=== PATIENT | female | born 1955 | race Caucasian/White ===

== ENCOUNTER → 2017-06-15 | Outpatient (REF) | payer BC ==
[2017-06-17 00:07] LABS: Lyme Disease IgG/IgM Antibodie <0.91 ISR (0.00-0.90); Lyme Disease IgM Ab Quantitati <0.80 index (0.00-0.79)
== END ==
LOC: M LAB REF 14:00
PROVIDERS: ATTEND Internal Medicine
DX: Z11.8 Encounter for screening for other infectious and parasitic diseases (principal)

== ENCOUNTER → 2017-08-20 | Outpatient (CLI) | payer BC ==
[2017-08-20 14:06] LABS: ANION GAP 6 MEQ/L (8-16); BLOOD UREA NITROGEN 17 MG/DL (7-18); CALCIUM LEVEL 9.2 MG/DL (8.8-10.2); CARBON DIOXIDE LEVEL 31 MEQ/L (21-32); CHLORIDE LEVEL 105 MEQ/L (98-107); CREATININE FOR GFR 0.85 MG/DL (0.55-1.02); GLOMERULAR FILTRATION RATE > 60.0 (>45); GLUCOSE, FASTING 99 MG/DL (80-110); POTASSIUM SERUM 4.6 MEQ/L (3.5-5.1); SODIUM LEVEL 142 MEQ/L (136-145)
== END ==
LOC: M SMT 08:17
PROVIDERS: ATTEND Urology
DX: N28.1 Cyst of kidney, acquired (principal)

== ENCOUNTER → 2017-08-26 | Outpatient (CLI) | payer BC, OTHER ==
[~2017-08-26] MED LIST: ISOVUE-370 76% 100ML VIAL (Q9967) As Ordered ONE
--- NOTE | 2017-08-26 09:43 | REP ---
CT ABDOMEN WITHOUT AND WITH IV CONTRAST: Without oral contrast. HISTORY: Kidney cyst. Comparison CT study August 25, 2016. The most remote CT study available for comparison is from September 04, 2015. CT CONTRAST DOSE: 100 mL of Isovue 370 is given intravenously. Pre- and dual-phase post-contrast enhanced acquisitions are performed. CT FINDINGS: There are numerous small simple cyst throughout both kidneys. One of these has been previously categorized as somewhat complex. This it is in the mid pole position of the left kidney. It and the other cysts are unchanged in size and appearance. The mid pole cyst measures 2.5 cm in greatest diameter today, unchanged from September 2015. There is a small calcification adjacent to its medial border on today's CT. No definite enhancement or mural thickening or nodularity is seen. The largest cyst in the right kidney is in the anterior cortex of its mid pole. This measures 1.9 cm in greatest diameter. No hydronephrosis is seen. No renal mass lesion is observed. A tiny accessory splenule is noted. There is diffuse moderate fatty infiltration of the liver. No focal liver lesion is seen. No adrenal lesion is observed. Pancreas is unremarkable. Small and large intestinal bowel loops are normal in the upper abdomen. IMPRESSION: Stable bilateral renal cysts including a 2.5 cm left mid pole cyst. Signed by Murphy Edwards MD 08/26/2017 01:17 P
== END ==
LOC: M RAD 08:09
PROVIDERS: ATTEND Urology
DX: N28.1 Cyst of kidney, acquired (principal)
CPT/HCPCS: 74170; Q9967

== ENCOUNTER → 2018-09-01 | Outpatient (CLI) | payer MEDICARE, BC | LOC: M RAD 08:16 | DX: N28.1 Cyst of kidney, acquired (principal) | CPT/HCPCS: 76775 ==

== ENCOUNTER → 2019-01-05 | Outpatient (CLI) | payer MEDICARE ==
--- NOTE | 2019-01-05 16:16 | REP ---
MRI LEFT WRIST: TECHNIQUE: Axial, sagittal and coronal imaging planes are utilized for T1 and T2 weighted scans obtained without fat saturation. There is no increased signal on T2 weighted images extending through a portion of the triangular fibrocartilage complex at the ulnar styloid insertion most consistent with a partial tear. Of that structure. Mild fluid is seen in the adjacent distal radioulnar joint. This scapholunate and lunatotriquetral ligaments appear intact. There is abnormal increase signal on T2 weighted images in the distal flexor carpi radialis tendon consistent with the complete tear. The tendon appears retracted to the level of the proximal carpal row. Other flexor and extensor tendons appear intact. Carpal tunnel region appears unremarkable. There is no ganglion cyst. There is mild scattered joint fluid throughout the intercarpal joints. There is no occult fracture. Scattered subchondral cysts are seen throughout the carpal bones, specifically the scaphoid, lunate, trapezoid, and capitate bones. IMPRESSION: Partial tear triangular fibrocartilage complex at the ulnar styloid insertion. Tiny amount of fluid in the adjacent distal radioulnar joint. Complete tear of the distal flexor lopez radialis tendon with retraction to about the level of the proximal carpal row. No occult fracture. Mild scattered intercarpal joint fluid. Electronically Signed by Alberto Holly MD 01/05/2019 05:18 P
== END ==
LOC: M RAD 13:12
PROVIDERS: ATTEND Orthopaedic Surgery Sports Medicine
DX: M25.532 Pain in left wrist (principal); M25.432 Effusion, left wrist; S66.812A Strain of other specified muscles, fascia and tendons at wrist and hand level, left hand, initial encounter; X58.XXXA Exposure to other specified factors, initial encounter; Y92.9 Unspecified place or not applicable

== ENCOUNTER → 2019-01-24 | Outpatient (CLI) | payer MEDICARE ==
[2019-01-24 17:48] LABS: BASO # 0.1 10^3/uL (0.0-0.2); BASO % 1.5 % (0.0-1.0); EOS # 0.2 10^3/uL (0.0-0.50); EOS % 3.1 % (0.0-3.0); HEMATOCRIT 41.5 % (36.0-47.0); HEMOGLOBIN 13.5 g/dl (12.0-15.5); LYMPH # 2.1 10^3/uL (1.5-4.5); LYMPH % 30.1 % (24.0-44.0); MEAN CORPUSCULAR HEMOGLOBIN 27.8 pg (27.0-33.0); MEAN CORPUSCULAR HGB CONC 32.5 g/dl (32.0-36.5); MEAN CORPUSCULAR VOLUME 85.4 fl (80.0-96.0); MONO # 0.6 10^3/uL (0.0-0.8); MONO % 8.2 % (0.0-5.0); NEUTROPHILS % 56.8 % (36.0-66.0); PLATELET COUNT, AUTOMATED 468 10^3/uL (150-450); RED BLOOD COUNT 4.86 10^6/uL (4.00-5.40); WHITE BLOOD COUNT 7.1 10^3/uL (4.0-10.0)
[2019-01-24 18:14] LABS: ERYTHROCYTE SEDIMENTATION RATE 4 mm/hr (0-30)
== END ==
LOC: M SMT 13:36
PROVIDERS: ATTEND Physician Assistant Surgical
DX: M17.11 Unilateral primary osteoarthritis, right knee (principal)

== ENCOUNTER → 2019-02-02 | Outpatient (REF) | payer MEDICARE ==
[2019-02-02 13:03] LABS: BLOOD UREA NITROGEN 19 MG/DL (7-18); GLOMERULAR FILTRATION RATE > 60.0 (>45)
== END ==
LOC: M LABDRAW1 12:30
PROVIDERS: ATTEND Physician Assistant Surgical
DX: M17.11 Unilateral primary osteoarthritis, right knee (principal)

== ENCOUNTER → 2019-02-28 | Outpatient (CLI) | payer MEDICARE | LOC: M SMT 11:05 | PROVIDERS: ATTEND Physician Assistant Surgical | DX: S83.241D Other tear of medial meniscus, current injury, right knee, subsequent encounter (principal); X58.XXXD Exposure to other specified factors, subsequent encounter ==

== ENCOUNTER → 2019-06-21 | Outpatient (CLI) | payer MEDICARE ==
[~2019-06-21] MED LIST changes: +CVS-161 PO; +D 50CAP PO; +FLAX1CAP5 PO; +GLUC1TAB58 PO; +ICAPTAB5 PO; -ISOVUE-370 76% 100ML VIAL (Q9967) As Ordered ONE; +MAGN250T7 PO; +REST0.05 OP; +[UNRECOGNIZED DRUG - CODE] PO; +[UNRECOGNIZED DRUG - OTHER] PO; +[UNRECOGNIZED DRUG - OTHER] PO
[2019-06-21 10:39] LABS: HEMATOCRIT 45.2 % (36.0-47.0); HEMOGLOBIN 14.6 g/dl (12.0-15.5); MEAN CORPUSCULAR HEMOGLOBIN 28.8 pg (27.0-33.0); MEAN CORPUSCULAR HGB CONC 32.3 g/dl (32.0-36.5); MEAN CORPUSCULAR VOLUME 89.2 fl (80.0-96.0); PLATELET COUNT, AUTOMATED 443 10^3/uL (150-450); RED BLOOD COUNT 5.07 10^6/uL (4.00-5.40); WHITE BLOOD COUNT 6.7 10^3/uL (4.0-10.0)
[2019-06-21 10:58] LABS: INR 1.01
[2019-06-21 11:00] LABS: ERYTHROCYTE SEDIMENTATION RATE 2 mm/hr (0-30)
[2019-06-21 11:06] LABS: ALT/SGPT 31 U/L (12-78); BILIRUBIN,TOTAL 0.5 MG/DL (0.2-1.0); BLOOD UREA NITROGEN 22 MG/DL (7-18); CALCIUM LEVEL 9.2 MG/DL (8.8-10.2); CARBON DIOXIDE LEVEL 29 MEQ/L (21-32); CHLORIDE LEVEL 105 MEQ/L (98-107); CREATININE FOR GFR 0.88 MG/DL (0.55-1.30); GLOMERULAR FILTRATION RATE > 60.0 (>45); GLUCOSE, FASTING 97 MG/DL (70-100); POTASSIUM SERUM 4.1 MEQ/L (3.5-5.1); SODIUM LEVEL 141 MEQ/L (136-145); TOTAL PROTEIN 7.1 GM/DL (6.4-8.2)
--- NOTE | 2019-06-21 12:32 | REP ---
REASON: Preoperative evaluation. COMPARISON EXAMINATION: 11/19/2005. FINDINGS: The superior mediastinal structures are midline. The cardiac silhouette is unremarkable in size, shape, and position. The diaphragmatic surfaces of the lungs are regular, and the costophrenic angles are clear. The pulmonary kim are clear. The imaged osseous structures are intact. IMPRESSION: There is no acute cardiopulmonary disease. No change from the prior exam. Electronically Signed by Kem Sanchez DO 06/21/2019 12:42 P
--- NOTE | 2019-06-23 09:06 | ECGEPIP ---
[facility] Test Date: 2019-06-21 Pat Name: YG REID Department: Room: - Gender: Female [employer]: RYANNE : 1955 Requested By: Krishna Diego Order Number: [id number] Reading MD: Aury Schneider Measurements Intervals [place] Rate: 77 P: 56 WV: 153 QRS: 6 QRSD: 97 T: 47 QT: 369 QTc: 419 Interpretive Statements SINUS RHYTHM POSSIBLE LEFT ATRIAL ENLARGEMENT PROBABLE INFERIOR MYOCARDIAL INFARCTION, OLD NO CHANGE COMPARED TO 07/10/15 Electronically Signed on 06-23-2019 9:06:23 EDT by Aury Schneider
== END ==
LOC: M RAD 09:43
PROVIDERS: ATTEND Orthopaedic Surgery
DX: Z01.818 Encounter for other preprocedural examination (principal); M17.11 Unilateral primary osteoarthritis, right knee

== ENCOUNTER 2019-07-17 06:55 | Inpatient (IN) | payer MEDICARE ==
--- NOTE | 2019-07-05 02:43 | CR ---
DATE OF CONSULTATION: 06/28/2019 PREOPERATIVE CONSULTATION: For Dr. Johnathon Packer for total knee arthroplasty (TKA) 07/17/[address] [facility] ([facility]). Dr. Packer: Thank you for asking me to see Ms. Ann Zaragoza in consultation. She is, as you know, a 64-year-old female, past medical history of hypertension, hyperlipidemia, hyperglycemia, who reports that she has been in her usual state of health except for the disability from her right knee. She has had Euflexxa shots with little response as well as a trial of gabapentin. 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 Patient has hypertension. She has been diet controlled. She denies any chest pain, palpitations, syncope, or presyncope. Patient has had right rotator cuff surgery July 2015 with adequate results. Patient has a history of chronic hematuria and follows urology annually. Patient has a history of hyperglycemia and denies polyuria, polyphagia, polydipsia. Patient has a history of nephrolithiasis. Denies recent flank pain or hematuria. REVIEW OF SYSTEMS: Otherwise, negative. Denying fevers or chills, chest pain or shortness of breath, nausea, vomiting, change in bowels. PAST MEDICAL HISTORY: 1. (G) 6, para (P) 5, spontaneous (AB) 1. 2. Right eye laser surgery 2001, Dr. Brown. 3. Hematuria with cystoscopy showing small stones, CT scan showing renal cyst. 4. Status post appendectomy in 1974. 5. Atypical squamous cells of undetermined significance (ASCUS) October 2004. 6. Carpal tunnel. 7. Diverticulosis per colonoscopy August 2008. 8. Gastroesophageal reflux disease (GERD) per upper gastrointestinal (GI) endoscopy 2005. 9. Hypertension. 10. Hyperlipidemia. 11. Hyperglycemia. 12. Right knee arthroscopy 08/15/2013. 13. Osteopenia. 14. Right rotator cuff surgery July 2015. 15. Atypical endophytic keratinocytic proliferation per biopsy right cheek. 16. Nephrolithiasis per CT imaging. Follows with urology. 17. Left wrist torn tendon November 2018. 18. Tubular adenomatous colonic polyp July 2018. Repeat 5 years. MEDICATIONS: - Aspercreme as needed - calcium citrate plus D daily - flaxseed oil 1300 mg daily - ICaps daily - magnesium 500 mg daily - Osteo Bi-Flex daily - Restasis as directed - vitamin C 250 mg daily - vitamin D3, 2000 international units daily - woman's multivitamin daily ALLERGIES: Patient's drug allergies are none. FAMILY HISTORY: Father had hypertension, of a stroke at 102 years old. Mother had dilated cardiomyopathy, hypertension, transient ischemic attacks (TIAs), of pulmonary edema at age of 94. Her daughter has Down syndrome. A brother has hypertension, a sister osteoporosis, another sister chronic obstructive pulmonary disease (COPD). SOCIAL HISTORY: Happily . Former smoker as a teenager. Denies alcohol use. 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 PATIENT HEALTH QUESTIONNAIRE-9 (PHQ-9): Negative for depression. PHYSICAL EXAMINATION: Overweight female in no acute distress. VITAL SIGNS: Weight 183 with a body mass index (BMI) of 33. Her oxygen saturation is 93% on exertion. Blood pressure 176/84, recheck 144/88 with a pulse of 80. HEENT EXAM: Head is normocephalic. Neck is supple. Pupils equal, reactive to light. Extraocular movements are intact. She wears eyeglasses. She has normal tympanic membranes. Tongue midline. Posterior pharynx without inflammation. NECK: Is supple. No thyromegaly, jugular venous distention (JVD), or carotid bruits. RESPIRATORY: Clear to auscultation. Resonant to percussion. BREASTS: Examination deferred. CARDIOVASCULAR: Regular rate and rhythm. No murmur, rub, or gallop. ABDOMEN: Obese, soft, nontender. No hepatosplenomegaly. EXTREMITIES: No cyanosis, clubbing, or edema but does have some osteoarthritis (OA) changes of the distal interphalangeal (DIP) joints as well as well-healed right anterior shoulder scar and right knee scar. NEUROLOGIC: Alert and oriented. Cranial nerves II-XII are intact. She has a slight decrease in her reflexes. LABORATORY DATA: Chest x-ray 06/21/2019 shows no acute pulmonary disease. EKG 06/21/2019 shows normal sinus rhythm, possible left atrial enlargement (LAE), cannot rule out inferior wall myocardial infarction (IA), but unchanged compared to EKG 07/10/2015. Rate is 77, axis 6 degrees, normal NC, QRS, QTc. 06/21/2019, normal PT, CBC, med profile, liver panel. From 02/27/2019, she had a fasting sugar of 113, total cholesterol of 201, triglycerides 108, HDL 69, LDL 110. IMPRESSION: Ms. Ann Zaragoza, 64-year-old female with cardiovascular risk factors positive for hypertension, hyperglycemia, hyperlipidemia, age, obesity, has no signs or symptoms indicative of cardiovascular ischemia and is optimized and at low risk for cardiovascular complications from the proposed surgical intervention, which can be further minimized by the following: RECOMMENDATIONS: 1. Hypertension. Diet, exercise, salt restriction. Adequate control on recheck. 2. Hyperglycemia. Diet, exercise, carbohydrate restriction. 3. Hyperlipidemia. Diet, exercise. Hold fish oil 1 week prior to surgery. 4. Renal cyst. Follows with urology. 5. Nephrolithiasis. Push fluids daily, citric products. 6. Obesity. Diet, exercise. 7. Fatty liver. Diet, exercise. Thank you very much for this consultation. Patient has been instructed to hold all vitamins and supplements morning of surgery. Please call with any questions or concerns. I will see her in a hospital followup 07/27/2019. ANGELIA
--- NOTE | 2019-07-05 17:53 | HPE ---
DATE OF ADMISSION: 07/17/2019 ATTENDING PHYSICIAN: Dr. Johnathon Packer CHIEF COMPLAINT: Right knee pain and stiffness. HISTORY: The patient is a pleasant 64-year-old female with progressively worsening right knee pain and stiffness. She has failed to improve with conservative measures. She continues to have symptoms with weightbearing activities and activities of daily living. The patient has consented for an elective right total knee arthroplasty with Dr. Packer for her continued symptoms. Medical optimization pending with Dr. Holley. CURRENT MEDICATIONS: Osteo Bi-Flex, calcium with vitamin D, flaxseed oil, vitamin C, a multivitamin, fiber supplement, and Restasis eye drops. ALLERGIES: There are no known drug allergies. CHRONIC MEDICAL CONDITIONS: None. PAST SURGICAL HISTORY: 1. Right knee arthroscopy. 2. Right shoulder rotator cuff repair. 3. Appendectomy. 4. Left wrist ganglion cyst removal. SOCIAL HISTORY: The patient is a former smoker and denies alcohol use. REVIEW OF SYSTEMS: The patient denies fevers, chills, nausea, vomiting or diarrhea. She denies chest pain, shortness of breath, lightheadedness, dizziness or headaches. She denies any abdominal pain. She denies any recent upper respiratory or urinary tract infection symptoms. The patient continues to have right knee pain with weightbearing activities and activities of daily living. PHYSICAL EXAMINATION: GENERAL: Well-nourished, well-developed female in no apparent distress. She is alert, oriented and cooperative. Mood and affect are appropriate. VITAL SIGNS: Height 5 feet, 3 inches, weight 182.8 pounds, temperature 98.5, blood pressure 120/80, heart rate 67, respirations 16. HEART: Regular rate and rhythm. LUNGS: Clear to auscultation bilaterally. ABDOMEN: Bowel sounds are present. Abdomen is soft and nontender to palpation. MUSCULOSKELETAL: Right knee exhibits no erythema, edema or ecchymosis. Skin is intact. She can extend knee to 2 degrees and flex to about 100 degrees. Right lower extremity strength is 5/5. No hip irritability elicited with range of motion testing. The patient's calf is soft, nontender to palpation with no palpable cords noted. She is neurovascularly intact distally. LABORATORY DATA: Chest x-ray: No acute cardiopulmonary process. Right knee x-ray notable for end-stage degenerative changes. EKG: Sinus rhythm with possible left atrial enlargement and probable inferior myocardial infarction, old. No change to previous tracing dated 07/10/2015. Complete blood count: ESR 2, WBCs 6.7, RBCs 5.07, hemoglobin 14.6, hematocrit 45.2, platelets 443. Prothrombin time 13, INR 1.01. Comprehensive metabolic profile: Fasting glucose 97, BUN elevated at 22, creatinine 0.88, GFR greater than 60, sodium 141, potassium 4.1, chloride 105, carbon dioxide 29, anion gap decreased at 7, calcium 9.2, AST 18, ALT 31, alkaline phosphatase 58, total bilirubin 0.5, total protein 7.1, albumin 4, albumin-globulin ratio 1.29. IMPRESSION: Right knee degenerative osteoarthritis with x-rays notable for end-stage degenerative changes. PLAN: The patient has consented for an elective right total knee arthroplasty with Dr. Packer for her continued symptoms. Medical optimization pending with Dr. Holley. [facility]
[~2019-07-17] VITALS: Ht 160 cm; Wt 82.9 kg
[2019-07-17] VITALS (8 sets, daily range): BP systolic 144–173; BP diastolic 68–87
[~2019-07-17 06:55] MED LIST changes: +ACETAMINOPHEN 500 MG TAB PO ONE; +BUPIVACAINE HCL 0.25% 10 ML VIAL As Ordered ONE; +BUPIVACAINE LIPOSOME/PF 1.3% 20ML VIAL (13.3MG/ML)(EXPAREL)(C9290 PER1MG) As Ordered ONE; +EPINEPHrine INJ 1 MG/ML 1ML AMP As Ordered ONE; +LIDOCAINE 1% MDV 20ML VIAL SQ PRN; +LR 1,000 ML IV ONE; +TRANEXAMIC ACID 100 MG/ML 10ML VIAL As Ordered ONE; +ceFAZolin 1GM INJ (J0690 PER 500MG) As Ordered ONE
[2019-07-17] MEDS ORDERED: fentaNYL 100 MCG/2 ML INJECTION (J3010) As Ordered ONE ×2 (08:20→09:35)
[2019-07-17] MEDS ORDERED: MIDAZOLAM INJ 2 MG/2 ML VIAL (J2250) As Ordered ONE ×2 (08:20→09:35)
[2019-07-17] MEDS ORDERED: MIDAZOLAM INJ 2 MG/2 ML VIAL (J2250) IV ONE (09:15)
[2019-07-17] MEDS ORDERED: fentaNYL 100 MCG/2 ML INJECTION (J3010) IV ONE (09:15)
[2019-07-17] MEDS ORDERED: PROPOFOL 200 MG/20 ML VIAL As Ordered ONE (09:35)
[2019-07-17] MEDS ORDERED: PHENYLephrine HCL 500 MCG/5 ML (100MCG/ML) SYRINGE (J2370) As Ordered ONE (09:48)
[2019-07-17] MEDS ORDERED: fentaNYL 100 MCG/2 ML INJECTION (J3010) IV PRN (11:15)
[2019-07-17] MEDS ORDERED: PERCOCET 5MG/325MG TAB PO PRN (11:15)
[2019-07-17] MEDS ORDERED: ONDANSETRON 4MG/2ML VIAL (J2405) IV PRN (11:15)
[2019-07-17] MEDS ORDERED: LR 1,000 ML IV SCH ×2 (11:15→14:45)
--- NOTE | 2019-07-17 11:44 | REP ---
Portable right knee, two views, post operative study: There is a total knee arthroplasty with the components tightly applied and in satisfactory positions alignment. There are skin jfefrey. There is intra-articular air as a postoperative change. I suspect there is a bone cyst in the fibular head. Electronically Signed by Alberto Zavala MD 07/17/2019 11:36 A
[2019-07-17] MEDS ORDERED: HYDROMORPHONE HCL 0.5 MG/ 0.5 ML SYRINGE (J1170 PER 1) IV PRN ×2 (12:16)
[2019-07-17] MEDS ORDERED: ACETAMINOPHEN TAB 650MG DOSE (2X325MG) PO PRN (12:16)
[2019-07-17] MEDS ORDERED: FLEET ENEMA PR PRN (12:16)
[2019-07-17] MEDS ORDERED: dexameTHASONE 10 MG/1 ML VIAL PRES.FREE (J1100) ONE (13:49)
[2019-07-17] MEDS ORDERED: ROPIvacaine 0.5% 30 ML INJECTION (J2795 PER 1MG) ONE (13:49)
[2019-07-17] MEDS: PERCOCET 5MG/325MG TAB PO PRN (18:29)
--- NOTE | 2019-07-17 23:00 | CR.PDOC ---
General Date of Consultation: Jul 17, 2019 Referring Provider: Krishna Packer Consultation REASON FOR CONSULTATION/CHIEF COMPLAINT: Medical management status post right t otal knee arthroplasty. HISTORY OF PRESENT ILLNESS: This is a 64-year-old female with osteoarthritis. She's had increasing disability and pain to her right knee. Conservative management has not been successful. She has subsequently undergone right total knee arthroplasty with spinal block.. ALLERGIES: Please see below. HOME MEDICATIONS: Please see below. PAST MEDICAL HISTORY: The patient denies any significant past medical history aside from dry eye. PAST SURGICAL HISTORY: Surgical history includes appendectomy, right rotator cuff repair, left ganglionic cyst excision FAMILY HISTORY: There is maternal and paternal history of stroke; family members have tended to be long-lived--father at the age of 102. 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 Tobacco use:None ETOH: None Illicit drug use: None IV drug use: None REVIEW OF SYSTEMS: 10 system review is otherwise negative except as stated in the brief presentation. PHYSICAL EXAMINATION: VITAL SIGNS: Please see below. GENERAL APPEARANCE: The patient is calm and in no distress. HEENT: Neck is supple with no adenopathy or thyromegaly. Oral mucosa is moist. RESPIRATORY: Clear to auscultation with no rhonchi, rales or wheezes or cough. CARDIOVASCULAR: Regular rate and rhythm, no appreciable murmur. ABDOMEN: Soft, nontender, nondistended, positive bowel tones. EXTREMITIES: Right lower extremity is wrapped in compression dressing, distally. Toes are warm and mobile. NEUROLOGICAL: The patient is able to feel me touching her toes but not her buttock and perianal area; she has had spinal anesthetic. LABORATORY DATA: Please see below. ASSESSMENT/PLAN: This is a 64-year-old female with degenerative joint disease who is just undergone right total knee arthroplasty. She is doing well. She does not have remarkable pain at the moment. She will mobilize per the orthopedic service. Plans are for the patient to be discharged to home rather than correction, likely within the next 24-48 hours. She is receiving Xarelto for DVT prophylaxis. Dilaudid and oxycodone are available for pain management. Vital Signs/I&O Vital Signs Date Time Temp Pulse Resp B/P (MAP) Pulse Ox O2 Delivery O2 Flow Rate FiO2 07/17/19 18:59 18 07/17/19 18:30 99.1 100 160/73 (102) 93 07/17/19 08:40 2 Allergies Coded Allergies: No Known Allergies (Unverified , 07/17/19) Home Medications Scheduled B2/Vits A,C,E/Lut/Zeaxanth/Min (Icaps Tablet) 1 Each Tablet.er, 1 TAB PO DAILY, (Reported) Calcium Citrate/Vitamin D3 (Calcium Citrate - Vit D Caplet) 1 Each Tablet, 1 TAB PO BID, (Reported) Cholecalciferol (Vitamin D3) (Vitamin D3) 5,000 Unit Capsule, 5,000 UNIT PO Q2D, (Reported) Cyclosporine (Restasis) 0.05% Droperette, 2 DROP OP BID for 30 Days, #60 (Repo rted) Flaxseed Oil (Flaxseed Oil) 1,000 Mg Capsule, 1 CAP PO DAILY, (Reported) Glucosamine/D3/Boswellia Prema (Osteo Bi-Flex Tablet) 1 Each Tablet, 1 EACH PO DAILY, (Reported) Magnesium Oxide (Magnesium) 250 Mg Tablet, 250 MG PO DAILY for 30 Days, #30 (Reported) [vitafusion fiberwell] , 1 GUM PO DAILY, (Reported) DILSHAD PANIAGUA MD Jul 17, 2019 23:00
[2019-07-18 02:00] VITALS: BP 147/66
[2019-07-18] MEDS: PERCOCET 5MG/325MG TAB PO PRN ×3 (02:15→11:52)
[2019-07-18 06:00] VITALS: BP 129/77
[2019-07-18 06:36] LABS: HEMATOCRIT 37.9 % (36.0-47.0); HEMOGLOBIN 12.3 g/dl (12.0-15.5); MEAN CORPUSCULAR HEMOGLOBIN 28.3 pg (27.0-33.0); MEAN CORPUSCULAR HGB CONC 32.5 g/dl (32.0-36.5); MEAN CORPUSCULAR VOLUME 87.1 fl (80.0-96.0); PLATELET COUNT, AUTOMATED 414 10^3/uL (150-450); RED BLOOD COUNT 4.35 10^6/uL (4.00-5.40); WHITE BLOOD COUNT 13.3 10^3/uL (4.0-10.0)
[2019-07-18 06:53] LABS: BLOOD UREA NITROGEN 20 MG/DL (7-18); CALCIUM LEVEL 8.7 MG/DL (8.8-10.2); CARBON DIOXIDE LEVEL 27 MEQ/L (21-32); CHLORIDE LEVEL 108 MEQ/L (98-107); CREATININE FOR GFR 0.91 MG/DL (0.55-1.30); GLOMERULAR FILTRATION RATE > 60.0 (>45); GLUCOSE, FASTING 122 MG/DL (70-100); SODIUM LEVEL 141 MEQ/L (136-145)
[2019-07-18] MEDS ORDERED: XARE10TA PO (07:37)
[2019-07-18] MEDS ORDERED: PERC5TAB12 PO (07:37)
[2019-07-18] MEDS ORDERED: MOM 30ML SUSPENSION UDC PO SCH (09:00)
[2019-07-18] MEDS ORDERED: MIRALAX *UNIT DOSE* 17GM PACKET PO SCH (09:00)
--- NOTE | 2019-07-18 09:28 | RO ---
DATE OF PROCEDURE: 07/17/2019 PREOPERATIVE DIAGNOSIS: Right knee degenerative arthritis. POSTOPERATIVE DIAGNOSIS: Right knee degenerative arthritis. PROCEDURE: Right total knee arthroplasty using a size 6 ATTUNE cruciate retaining femoral component with a size 4 tibial tray and 5 mm rotating platform polyethylene insert and a 35 mm polyethylene button. All the components were cemented. The prosthesis was made by [employer]. It was an ATTUNE knee. SURGEON: Krishna Packer MD DATA ACQUISITION TECHNICIAN: Jessica Colin PA-C ANESTHESIA: Spinal with right femoral nerve block. COMPLICATIONS: None. ESTIMATED BLOOD LOSS: 20 mL. SPECIMENS: Joint surface. PROCEDURE: Antibiotics were given intravenously preoperatively. A successful right femoral nerve block and then a spinal anesthetic was induced. The tourniquet was placed on the right upper thigh and not inflated. The right lower extremity was carefully prepped and draped in the usual sterile fashion. The leg was elevated and after appropriate time out, the tourniquet was inflated. A longitudinal incision was made for a medial parapatellar approach to the knee. Bovie cautery was used to coagulate the crossing vessels. Subperiosteal dissection around the proximal, medial and lateral tibial plateaus was performed. The patella was everted and the knee was flexed. The anterior cruciate ligament (ACL) was debrided. Drill placed down the center of femoral canal, followed by the intramedullary richa, the distal femoral cutting jig set at 5 degree valgus for a right knee at 9 mm resection level. A block was pinned into position and distal femoral cut performed. AP sizing jig measured for a size 6. 3 degrees of external rotation were dialed in and then the pins were placed followed by the four-in-one block and then the anterior, posterior and chamfer cuts were performed taking great care to protect the surrounding soft tissues. The notchplasty jig was then applied and the notchplasty performed. We then exposed the proximal tibia and used the extramedullary alignment jig to estimate being parallel to the mechanical axis of the tibia. We referenced off the medial tibial condyle at 4 mm resection level and the block was pinned in position and secondary check of extramedullary richa confirmed we appeared to be parallel to the mechanical axis. The proximal tibial osteotomy was thus performed and then we placed a lamina line construction superintendent medially and performed a completion lateral meniscectomy and debridement of the posterolateral osteophytes. I then placed the lamina line construction superintendent laterally and performed a completion medial meniscectomy and debridement of the posteromedial osteophytes. There were two fairly large marion sized loose bodies in the posterolateral compartment of the knee, which were removed. We then placed the spacer block, the 6 mm was a bit snug in flexion and in extension. The 5 mm fit the best, still retaining good stability to varus valgus stress testing. We then exposed the proximal tibia, sized for a size #4 tibial tray which was pinned into position followed by the reamer and broach, and the trial polyethylene and trial femoral component. We brought the knee out into extension and then everted the patella, brought the knee out into extension, and then everted the patella, performed patellar osteotomy and sized for a 35 button. The lug holes were drilled, the trial was placed. Patellofemoral tracking was anatomic. At this point, we felt we had the appropriate size componentry. We removed all the trial components after drilling the lug holes for the femur, then copiously pulsatile lavage irrigated out the knee joint. Miss Jessica Colin mixed the cement on the back table as I prepared the bony surfaces for cementing with a copious amount of pulsatile lavage irrigant solution. Exparel was placed in the subperiosteal tissues around the distal femur and the proximal tibia just prior to mixing the cement. Then after a copious amount of irrigation was applied and all the bony surfaces were thoroughly dried we cemented the tibial tray removing excess cement, placed the polyethylene, cemented the femoral component and removed excess cement, brought the knee out into extension, cemented the patellar button and removed excess cement and held it with a patellar clamp with the knee in full extension while we awaited for the cement to harden. A copious amount of irrigant solution was then instilled once again throughout the knee joint as we were waiting for the cement to harden followed by tranexamic acid. We then began closing the apex of the arthrotomy with two #1 PDS sutures. Then the medial parapatellar area was closed with a #1 PDS sutures and a double armed #1 STRATAFIX was used to close the capsule. Then we let the tourniquet down. I irrigated again and closed the deep subdermal tissues with interrupted #2-0 PDS sutures. Skin was closed with jeffrey, covered by Optifoam and a dry sterile bulky dressing. Ms. Jessica Colin was critical to the success of this difficult operation by helping with appropriate soft tissue retraction, helped to manipulate the knee as needed, helped to mix the cement, helped to close the wound, and helped to prepare the patient amongst many other tasks to allow me to perform the operation smoothly, efficiently and safely.
[2019-07-18] MEDS ORDERED: RIVAROXABAN 10 MG TAB (XARELTO) PO SCH (18:00)
--- NOTE | 2019-07-18 19:29 | IPNPDOC ---
Date Seen The patient was seen on 07/18/19. Progress Note SUBJECTIVE: Patient reported feeling well without any complaints. States that RLE still no significant discomfort yet. For discharge today per primary. OBJECTIVE PHYSICAL EXAMINATION: VITAL SIGNS: Please see below. General: No acute distress, Alert Eyes: Normal sclera, EOMI, SUE HENT: Atraumatic, neck supple, moist mucous membranes Cardiovascular: Normal rate, normal rhythm. Pulmonary: Clear to auscultation b/l, no wheezing GI: Soft, nontender, nondistended Skin: Warm and dry. R knee with overlying bandage clean and dry. No significant tenderness or erythema. Neuro: CN grossly intact. No focal deficits. Strengths equal b/l. Psych: oriented x 3 LABORATORY DATA, IMAGING STUDIES, MICROBIOLOGY: Please see below. DVT prophylaxis ordered?: YES ASSESSMENT AND PLAN: 1. R. KNEE OA - s/p R. TKA - Pain control. - PT/OT. - Plan to d/c today to f/u ortho as outpatient. 2. HTN - BP controlled. - Resume home meds. 3. HLD - resume home med. DISPOSITION: Home today. VS, I&O, 24H, Fishbone Vital Signs/I&O Vital Signs Date Time Temp Pulse Resp B/P (MAP) Pulse Ox O2 Delivery O2 Flow Rate FiO2 07/18/19 12:22 16 07/18/19 06:00 98.3 73 129/77 (94) 95 07/17/19 08:40 2 I&O- Last 24 Hours up to 6 AM 07/18/19 06:00 Intake Total 2450 ml Output Total 970 ml Balance 1480 ml Laboratory Data 24H LABS Laboratory Tests 2 07/18/19 06:08: Nucleated Red Blood Cells % (auto) 0.0 07/18/19 06:09: Anion Gap 6L, Glomerular Filtration Rate > 60.0, Blood Urea Nitrogen 20H, Creatinine 0.91, Sodium Level 141, Potassium Level 4.0, Chloride Level 108H, Carbon Dioxide Level 27, Calcium Level 8.7L CBC/BMP Laboratory Tests 07/18/19 06:08 Red Blood Count 4.35, Mean Corpuscular Volume 87.1, Mean Corpuscular Hemoglobin 28.3, Mean Corpuscular Hemoglobin Concent 32.5, Red Cell Distribution Width 13.9 07/18/19 06:09 Calcium Level 8.7 L KASSY ACOSTA MD Jul 18, 2019 19:29
== END 2019-07-18 14:15 | disposition home or self-care (01) | DRG 470 ==
LOC: M OR 06:55 → M MS5PR 13:20
PROVIDERS: ADMIT Orthopaedic Surgery; ATTEND Orthopaedic Surgery
PROC: 0SRC0J9 Replacement of Right Knee Joint with Synthetic Substitute, Cemented, Open Approach (ICD-10-PCS; principal; 2019-07-17 09:15)
DX: M17.11 Unilateral primary osteoarthritis, right knee (principal); I10 Essential (primary) hypertension; E78.5 Hyperlipidemia, unspecified; K57.30 Diverticulosis of large intestine without perforation or abscess without bleeding; K21.9 Gastro-esophageal reflux disease without esophagitis; Z79.899 Other long term (current) drug therapy; N28.1 Cyst of kidney, acquired; E66.9 Obesity, unspecified; K76.0 Fatty (change of) liver, not elsewhere classified; N20.0 Calculus of kidney

== ENCOUNTER → 2019-09-18 | Outpatient (CLI) | payer MEDICARE ==
[~2019-09-18] MED LIST changes: -ACETAMINOPHEN 500 MG TAB PO ONE; -BUPIVACAINE HCL 0.25% 10 ML VIAL As Ordered ONE; -BUPIVACAINE LIPOSOME/PF 1.3% 20ML VIAL (13.3MG/ML)(EXPAREL)(C9290 PER1MG) As Ordered ONE; -EPINEPHrine INJ 1 MG/ML 1ML AMP As Ordered ONE; -LIDOCAINE 1% MDV 20ML VIAL SQ PRN; -LR 1,000 ML IV ONE; +PERC5TAB12 PO; -TRANEXAMIC ACID 100 MG/ML 10ML VIAL As Ordered ONE; +XARE10TA PO; -ceFAZolin 1GM INJ (J0690 PER 500MG) As Ordered ONE
--- NOTE | 2019-09-18 12:21 | REP ---
RENAL ULTRASOUND: Real-time sonographic evaluation of the kidneys performed and compared to a prior study of 11/01/[address] 08/26/2017. Right kidney measures 10.0 x 5.4 x 4.6 cm and left kidney 9.7 x 6.0 x 5.8 cm. There is no hydronephrosis bilaterally. There are once again multiple bilateral renal cysts present which appear similar to prior studies, some of which contain low level echoes. A cyst in the upper pole of the right kidney measures 13 x 10 x 12 mm, in the mid right kidney 7 mm and in the lower pole 1.7 x 1.3 x 1.1 cm. A cyst in the upper left kidney measures 2.3 x 2.1 x 2.7 cm and two cysts in the lower pole in the left kidney measure 1.2 cm and 1.0 x 0.8 x 1.4 cm. Echogenic focus in the mid right kidney measures 6 mm and another in the mid left kidney measures 10 mm, likely representing calculi. Urinary bladder appears grossly unremarkable with bilateral ureteral jets seen with Doppler color evaluation. IMPRESSION: Bilateral renal cysts appear similar to prior examinations. Possible calculus is seen in each kidney. Electronically Signed by Alberto Holly MD 09/19/2019 08:40 P
== END ==
LOC: M RAD 09:57
PROVIDERS: ATTEND Urology
DX: Q61.00 Congenital renal cyst, unspecified (principal)

== ENCOUNTER → 2019-09-22 | Outpatient (REF) | payer BC ==
[2019-09-22 12:21] LABS: BLOOD UREA NITROGEN 17 MG/DL (7-18); CALCIUM LEVEL 9.7 MG/DL (8.8-10.2); CARBON DIOXIDE LEVEL 31 MEQ/L (21-32); CHLORIDE LEVEL 107 MEQ/L (98-107); CREATININE FOR GFR 0.75 MG/DL (0.55-1.30); GLOMERULAR FILTRATION RATE > 60.0 (>45); GLUCOSE, FASTING 97 MG/DL (70-100); POTASSIUM SERUM 4.1 MEQ/L (3.5-5.1); SODIUM LEVEL 142 MEQ/L (136-145)
== END ==
LOC: M LABSMT 09:47
PROVIDERS: ATTEND Nurse Practitioner Family
DX: Q61.00 Congenital renal cyst, unspecified (principal)

== ENCOUNTER → 2019-09-26 | Outpatient (CLI) | payer BC ==
[~2019-09-26] MED LIST changes: +ISOVUE-370 76% 100ML VIAL (Q9967) As Ordered ONE
--- NOTE | 2019-09-26 18:17 | REP ---
CT ABDOMEN AND PELVIS WITH AND WITHOUT IV CONTRAST: CT abdomen and pelvis is performed prior to and following the intravenous administration of 100 mL of Isovue-370. Sagittal and coronal reconstruction images are performed. COMPARISON: Prior CT 08/26/2017. Visualized lung bases demonstrate no evidence of acute infiltrate. The liver demonstrates no mass. The gallbladder appears unremarkable. There is no biliary dilatation. The spleen is normal in size with no intrinsic abnormality. The adrenal glands are normal. Pancreas appears normal with no pancreatic ductal dilatation. There are once again multiple bilateral renal cysts present. Five or six cysts are seen in the right kidney, the largest measuring about 1.8 cm in diameter in the mid aspect. None of these enhance. There are approximately 15 cysts of the left kidney. The largest is in the upper pole and measures approximately 2.4 cm. However, there does appear to be an enhancing solid mass in the adjacent posterior upper pole of the left kidney measuring 1.5 cm in diameter. This is suspicious for carcinoma. A punctate cortical calcification is seen in the lower pole of the right kidney. Another is seen in the upper pole of the left kidney. No renal calculi are seen. There is no hydroureteronephrosis bilaterally and no evidence of bladder calculus. Mild atherosclerotic calcification is seen of the abdominal aorta without aneurysm. There is no adenopathy. There is no free air or free fluid. There is no bowel wall thickening. There is sigmoid diverticulosis without acute diverticulitis. No pelvic mass is seen. There are degenerative changes of the spine. IMPRESSION: Multiple bilateral renal cysts again noted. There is a solid renal nodule posteriorly in the upper pole of the left kidney, which is not seen by ultrasound measuring 1.5 cm in diameter. This is suspicious for renal cell carcinoma. I see no adenopathy. Electronically Signed by Alberto Holly MD 09/27/2019 09:58 A
== END ==
LOC: M RAD 16:24
PROVIDERS: ATTEND Nurse Practitioner Family
DX: N28.1 Cyst of kidney, acquired (principal); N20.0 Calculus of kidney
CPT/HCPCS: 74178; Q9967

== ENCOUNTER → 2020-08-22 | Outpatient (CLI) | payer MEDICARE ==
[~2020-08-22] MED LIST changes: -ISOVUE-370 76% 100ML VIAL (Q9967) As Ordered ONE
--- NOTE | 2020-08-22 12:45 | REP ---
INDICATION: CMPLEX RENAL CYST COMPARISON: CT dated 09/26/2019 TECHNIQUE: Real time prince scale ultrasound examination using curved array transducer. FINDINGS: The kidneys demonstrate increased parenchymal echotexture with increased central sinus fat consistent with chronic medical renal disease and no evidence for hydronephrosis. The right kidney measures 9.6 x 5.3 x 4.5 cm and includes multiple simple and complex cysts including septated cysts with layering milk of calcium measuring up to 1.7 cm maximal diameter. The left kidney measures 10.6 x 5.6 x 6.1 cm and includes a multiple simple and complex cysts including septated cysts with layering milk of calcium measuring up to 3.0 cm. There is a 1.7 x 1.6 x 2.1 cm upper pole solid mass consistent with the findings on prior CT dated 2018 and concerning for renal cell carcinoma unless proven otherwise. IMPRESSION: 1. Chronic medical renal disease with bilateral simple and complex cysts. No hydronephrosis. 2. Left upper pole renal mass. <Electronically signed by Rob Ren > 08/22/20 [id number]
== END ==
LOC: M RAD 11:29
PROVIDERS: ATTEND Urology
DX: Q61.00 Congenital renal cyst, unspecified (principal); N18.9 Chronic kidney disease, unspecified; N28.89 Other specified disorders of kidney and ureter

== ENCOUNTER → 2020-10-03 | Outpatient (CLI) | payer MEDICARE ==
[2020-10-03 09:08] LABS: BLOOD UREA NITROGEN 16 MG/DL (7-18); CALCIUM LEVEL 9.5 MG/DL (8.8-10.2); CARBON DIOXIDE LEVEL 30 MEQ/L (21-32); CHLORIDE LEVEL 106 MEQ/L (98-107); CREATININE FOR GFR 0.96 MG/DL (0.55-1.30); GLOMERULAR FILTRATION RATE > 60.0 (>45); GLUCOSE, FASTING 133 MG/DL (70-100); POTASSIUM SERUM 3.9 MEQ/L (3.5-5.1); SODIUM LEVEL 140 MEQ/L (136-145)
== END ==
LOC: M LAB 07:33
PROVIDERS: ATTEND Urology
DX: N28.89 Other specified disorders of kidney and ureter (principal)

== ENCOUNTER → 2021-09-23 | Outpatient (CLI) | payer MEDICARE ==
--- NOTE | 2021-09-23 18:04 | DEXAMM ---
INDICATION: SCREENING FOR OSTEOPENIA. COMPARISON: 04/17/2019, 10/30/2005. TECHNIQUE: Bone density was measured using dual-energy x-ray absorptiometry (DEXA). FINDINGS: AP SPINE L1-L4 BMD 1.225 g/cm2 Young Adult T-Score 0.2 Age Matched Z-Score 1.9. LT FEMUR, TOTAL BMD 0.948 g/cm2 Young Adult T-Score -0.5 Age Matched Z-Score 0.9. LT NECK BMD 0.773 g/cm2 Young Adult T-Score -1.9 Age Matched Z-Score -0.3. RT FEMUR, TOTAL BMD 0.880 g/cm2 Young Adult T-Score -1.0 Age Matched Z-Score 0.4. RT NECK BMD 0.781 g/cm2 Young Adult T-Score -1.8 Age Matched Z-Score -0.2. IMPRESSION: There is normal bone density of the spine. There is low bone density of the left hip. There is low bone density of the right hip. The density of the spine has decreased 6.5% since the initial exam on 10/30/2005. The density of the spine increased 3.1% since most recent exam on 04/17/2019. The density of the left hip has decreased 1.1% since initial exam on 10/30/2005. The density of the left hip has increased 1.4% since most recent exam on 04/17/2019. The density of the right hip has decreased 11.0% since the initial exam on 10/30/2005. The density of the right hip has decreased 0.1% since the most recent exam on 04/17/2019. FOLLOW-UP: Recommendation for the next bone density exam: 2 years. <Electronically signed by Alberto Holly > 09/23/21 1800
== END ==
LOC: M WHC 09:09
PROVIDERS: ATTEND Internal Medicine
DX: M85.851 Other specified disorders of bone density and structure, right thigh (principal); M85.852 Other specified disorders of bone density and structure, left thigh

== ENCOUNTER → 2021-10-21 | Outpatient (CLI) | payer MEDICARE ==
[2021-10-21 16:38] LABS: CALCIUM LEVEL 9.8 MG/DL (8.8-10.2); CREATININE FOR GFR 1.1 MG/DL (0.55-1.30); GLOMERULAR FILTRATION RATE 52.6 (>45); POTASSIUM SERUM 3.9 MEQ/L (3.5-5.1)
== END ==
LOC: M WUC 14:25
PROVIDERS: ATTEND Nurse Practitioner Women's Health
DX: N28.89 Other specified disorders of kidney and ureter (principal)

== ENCOUNTER → 2021-10-23 | Outpatient (CLI) | payer MEDICARE ==
--- NOTE | 2021-10-23 12:33 | REP ---
INDICATION: B/L DIAG LEFT BREAST LUMP; LEFT BREAST LUMP. COMPARISON: 09/18/2020 as well as other prior exams. TECHNIQUE: MLO and CC views bilateral breasts with tomosynthesis, additional cleavage views left breast. Focused left breast ultrasound at the site of a palpable lump, with skin discoloration, far medial and posteriorly of the left breast close to the chest wall. FINDINGS: There is mild scattered fibroglandular tissue again seen bilaterally, unchanged. No new mass or architectural distortion is seen mammographically. The reported palpable abnormality is not adequately included the obtained mammographic images due to its close proximity to the chest wall. No clustered microcalcifications are seen bilaterally. Focused left breast ultrasound performed at the site of the palpable lump. The patient reports this lump has decreased in size since appearing in September 2021. At this location, there is a superficial hypoechoic area measuring 1.4 x 0.6 x 1.0 cm. This involves the dermis and most likely represents a complex sebaceous cyst. The Volpara volumetric breast density pattern is A. IMPRESSION: BIRADS/ACR category 3, probably benign. No mammographic abnormality is visualized. Sonographically, at the site of the palpable lump close to the left chest wall, at the medial margin of the left breast, is a superficial complex cyst felt to represent a sebaceous cyst. Recommend clinical correlation and six-month follow-up ultrasound. This patient's Tyrer-Cuzick lifetime breast cancer risk assessment score is 5.2%. This mammogram was interpreted with the aid of an FDA-approved computer-aided detection system. The patient states she had a clinical breast exam in December 2020. The patient letter being requested is M3. RECOMMENDATION: Recommend follow-up left breast ultrasound in 6 months. <Electronically signed by Alberto Holly > 10/23/21 [id number]
== END ==
LOC: M WHC 08:42
PROVIDERS: ATTEND Internal Medicine
DX: N63.20 Unspecified lump in the left breast, unspecified quadrant (principal); N60.02 Solitary cyst of left breast
CPT/HCPCS: 76642; 77066; G0279

== ENCOUNTER → 2021-10-23 | Outpatient (CLI) | payer MEDICARE ==
[~2021-10-23] MED LIST changes: +ISOVUE-370 76% 100ML VIAL As Ordered ONE
--- NOTE | 2021-10-26 20:50 | REP ---
INDICATION: RENAL MASS LEFT SIDE. COMPARISON: 10/10/2020, 09/26/2019 TECHNIQUE: Axial precontrast, arterial phase, venous phase, and delayed phased contrast-enhanced images of the abdomen using 100 cc Isovue 370 intravenous contrast material. Coronal and sagittal reformations obtained. This CT examination was performed using the following dose reduction techniques: Automated exposure control, adjustment of mA and/or kv according to the patient's size, and the use of iterative reconstruction technique. FINDINGS: The kidneys demonstrate bilateral simple and complex cysts including a complex proteinaceous cyst along the posterolateral cortex lower pole left kidney which measures roughly 1.2 cm diameter. The left kidney also includes a 2 cm lesion along the posterolateral aspect of the upper pole which remains stable in size compared with 2019, but demonstrates increased enhancement from the noncontrast through contrast-enhanced images concerning for neoplastic lesion (series 601; images 35-40). Liver demonstrates hepatosteatosis without focal hepatic lesion. Spleen, pancreas, gallbladder, and bilateral adrenal glands are normal. Visualized portions of the enteric system are relatively normal. No ascites. No free air. No intraperitoneal or retroperitoneal adenopathy. Abdominal aorta appears normal. Evidence for congenital duplicated IVC. Musculoskeletal structures demonstrate age-related degenerative changes without acute osseous abnormality. Lung bases are clear. IMPRESSION: 1. Left kidney demonstrates an upper pole lesion that remains stable in size through 2019, but demonstrates increased enhancement from the noncontrast through arterial and portal venous phase sequences concerning for neoplasm. No perinephric stranding or adjacent adenopathy. Consider MRI for further investigation if necessary. 2. Remainder of the renal lesions are stable and most compatible with simple and proteinaceous complex cysts. <Electronically signed by Rob Ren > 10/26/212046
== END ==
LOC: M RAD 16:25
PROVIDERS: ATTEND Nurse Practitioner Women's Health
DX: N28.89 Other specified disorders of kidney and ureter (principal)
CPT/HCPCS: 74170; Q9967

== ENCOUNTER → 2021-12-02 | Outpatient (CLI) | payer MEDICARE ==
[~2021-12-02] MED LIST changes: -ISOVUE-370 76% 100ML VIAL As Ordered ONE
== END ==
LOC: M WUC 08:22
PROVIDERS: ATTEND Nurse Practitioner Women's Health
DX: Z01.818 Encounter for other preprocedural examination (principal); N28.89 Other specified disorders of kidney and ureter

== ENCOUNTER → 2021-12-15 | Outpatient (REF) | payer MEDICARE ==
[~2021-12-15] MED LIST changes: +TRET0.02 EX
[2021-12-15 11:45] LABS: APPEARANCE, URINE CLEAR (CLEAR); BACTERIA, URINE AUTO NEGATIVE (NEGATIVE); BILIRUBIN, URINE AUTO NEGATIVE (NEGATIVE); BLOOD, URINE BLOOD NEGATIVE (NEGATIVE); GLUCOSE, URINE (UA) AUTO NEGATIVE (NEGATIVE); KETONE, URINE AUTO NEGATIVE (NEGATIVE); LEUKOCYTE ESTERASE, URINE AUTO NEGATIVE (NEGATIVE); MUCUS, URINE SMALL (NEGATIVE); NITRITE, URINE AUTO NEGATIVE (NEGATIVE); PROTEIN, URINE AUTO NEGATIVE (NEGATIVE); RBC, URINE AUTO 1 /HPF (0-3); SPECIFIC GRAVITY URINE AUTO 1.006 (1.002-1.035); SQUAMOUS EPITHELIAL CELL UR AU 1 /HPF (0-6); UROBILINOGEN, URINE AUTO 0.2 mg/dL (0.0-2.0); WBC, URINE AUTO 0 /HPF (0-3)
[2021-12-15 12:02] LABS: COLOR, URINE YELLOW (YELLOW)
== END ==
LOC: M SMT 11:19
PROVIDERS: ATTEND Nurse Practitioner Women's Health
DX: N28.89 Other specified disorders of kidney and ureter (principal); Z01.818 Encounter for other preprocedural examination

== ENCOUNTER → 2021-12-16 | Outpatient (CLI) | payer MEDICARE ==
[2021-12-16 20:14] LABS: APPEARANCE, URINE CLEAR (CLEAR); BACTERIA, URINE AUTO NEGATIVE (NEGATIVE); BILIRUBIN, URINE AUTO NEGATIVE (NEGATIVE); BLOOD, URINE BLOOD NEGATIVE (NEGATIVE); COLOR, URINE STRAW (YELLOW); GLUCOSE, URINE (UA) AUTO NEGATIVE (NEGATIVE); KETONE, URINE AUTO NEGATIVE (NEGATIVE); LEUKOCYTE ESTERASE, URINE AUTO NEGATIVE (NEGATIVE); MUCUS, URINE SMALL (NEGATIVE); NITRITE, URINE AUTO NEGATIVE (NEGATIVE); PROTEIN, URINE AUTO NEGATIVE (NEGATIVE); RBC, URINE AUTO 1 /HPF (0-3); SPECIFIC GRAVITY URINE AUTO 1.009 (1.002-1.035); SQUAMOUS EPITHELIAL CELL UR AU 0 /HPF (0-6); UROBILINOGEN, URINE AUTO 0.2 mg/dL (0.0-2.0); WBC, URINE AUTO 0 /HPF (0-3)
== END ==
LOC: M WUC 15:28
PROVIDERS: ATTEND Urology
DX: N28.89 Other specified disorders of kidney and ureter (principal); Z01.818 Encounter for other preprocedural examination

== ENCOUNTER → 2021-12-19 | Outpatient (CLI) | payer MEDICARE | LOC: M LABSMTC 10:45 | PROVIDERS: ATTEND Anesthesiology | DX: Z01.818 Encounter for other preprocedural examination (principal); Z11.52 Encounter for screening for COVID-19 ==

== ENCOUNTER 2021-12-24 06:06 | Inpatient (IN) | payer MEDICARE ==
[~2021-12-24] VITALS: Ht 160 cm; Wt 83.4 kg
[2021-12-24] VITALS (8 sets, daily range): BP systolic 145–161; BP diastolic 71–86
[~2021-12-24 06:06] MED LIST changes: +LR 1,000 ML IV ONE; +ceFAZolin SOD 2 GM in IV 1 EA IV ONE
[2021-12-24] MEDS ORDERED: LIDOCAINE 1% SDV 30ML VIAL As Ordered ONE (07:09)
[2021-12-24] MEDS ORDERED: BUPIVACAINE HCL 0.25% 30ML VIAL As Ordered ONE (07:09)
[2021-12-24] MEDS ORDERED: ONDANSETRON 4MG/2ML VIAL IV PRN ×2 (07:25→11:55)
[2021-12-24] MEDS ORDERED: PERCOCET 5MG/325MG TAB PO PRN (07:25)
[2021-12-24] MEDS ORDERED: ACETAMINOPHEN TAB 650MG DOSE (2X325MG) PO PRN (07:25)
[2021-12-24] MEDS ORDERED: ONDANSETRON 4MG/2ML VIAL As Ordered ONE (07:26)
[2021-12-24] MEDS ORDERED: propofoL 200 MG/20 ML VIAL As Ordered ONE (07:26)
[2021-12-24] MEDS ORDERED: ROCURONIUM BROMIDE 50 MG/5 ML VIAL As Ordered ONE (07:26)
[2021-12-24] MEDS ORDERED: dexameTHASONE 4 MG/ML 1ML VIAL (J1100 PER 1MG) As Ordered ONE (07:26)
[2021-12-24] MEDS ORDERED: LIDOCAINE 2% 100MG/5ML SDV (FOR ANES.) As Ordered ONE (07:26)
[2021-12-24] MEDS ORDERED: HYDROmorphone HCL 2MG/ML 1ML VIAL As Ordered ONE (07:26)
[2021-12-24] MEDS ORDERED: fentaNYL 250 MCG/5 ML INJECTION As Ordered ONE (07:26)
[2021-12-24] MEDS ORDERED: SUGAMMADEX SODIUM 500 MG/5 ML VIAL (BRIDION) As Ordered ONE (07:26)
[2021-12-24] MEDS ORDERED: METOCLOPRAMIDE INJ 10MG/2ML VIAL (J2765 PER 1) As Ordered ONE (07:26)
[2021-12-24] MEDS ORDERED: MIDAZOLAM INJ 2MG/2ML VIAL (J2250 PER 1MG) As Ordered ONE (07:26)
[2021-12-24] MEDS ORDERED: PHENYLephrine 500MCG 5ML (100MCG/ML) SYRINGE As Ordered ONE (07:56)
[2021-12-24] MEDS ORDERED: ePHEDrine SULFATE 25 MG/5 ML(5MG/ML) SYRINGE As Ordered ONE (08:10)
[2021-12-24] MEDS ORDERED: MANNITOL 25% 12.5 GM/50 ML VIAL (J2150) As Ordered ONE (08:22)
[2021-12-24] MEDS ORDERED: DESFLURANE 240 ML INHALANT As Ordered ONE (10:46)
[2021-12-24] MEDS ORDERED: LR 1,000 ML IV SCH (11:55)
[2021-12-24] MEDS: oxyCODONE 5MG TAB PO PRN ×2 (12:03→12:26)
[2021-12-24] MEDS: fentaNYL 100 MCG/2 ML INJECTION IV PRN ×4 (12:03→12:33)
[2021-12-24 12:44] LABS: HEMATOCRIT 42.6 % (36.0-47.0); HEMOGLOBIN 13.6 g/dl (12.0-15.5); MEAN CORPUSCULAR HEMOGLOBIN 27.5 pg (27.0-33.0); MEAN CORPUSCULAR HGB CONC 31.9 g/dl (32.0-36.5); MEAN CORPUSCULAR VOLUME 86.2 fl (80.0-96.0); PLATELET COUNT, AUTOMATED 476 10^3/uL (150-450); RED BLOOD COUNT 4.94 10^6/uL (4.00-5.40); WHITE BLOOD COUNT 10.4 10^3/uL (4.0-10.0)
[2021-12-24] MEDS: DOCUSATE SODIUM 100MG CAPSULE PO SCH ×2 (13:00→21:04)
[2021-12-24] MEDS: NS 1,000 ML IV SCH ×2 (13:00→21:04)
[2021-12-24 13:06] LABS: CALCIUM LEVEL 8.8 MG/DL (8.8-10.2); CREATININE FOR GFR 1.12 MG/DL (0.55-1.30); GLOMERULAR FILTRATION RATE 51.5 (>45); POTASSIUM SERUM 3.3 MEQ/L (3.5-5.1)
[2021-12-24] MEDS: ceFAZolin SOD 1 GM in D5W MINI-BAG PLUS 50 ML IV SCH ×2 (16:41→23:51)
[2021-12-25 02:00] VITALS: BP 140/70
[2021-12-25] MEDS: PERCOCET 5MG/325MG TAB PO PRN ×3 (02:07→12:55)
[2021-12-25 06:00] VITALS: BP 159/77
[2021-12-25 06:20] LABS: HEMATOCRIT 37.4 % (36.0-47.0); MEAN CORPUSCULAR HEMOGLOBIN 27.9 pg (27.0-33.0); MEAN CORPUSCULAR HGB CONC 32.1 g/dl (32.0-36.5); PLATELET COUNT, AUTOMATED 407 10^3/uL (150-450); WHITE BLOOD COUNT 10.9 10^3/uL (4.0-10.0)
[2021-12-25 06:50] LABS: BLOOD UREA NITROGEN 16 MG/DL (7-18); CALCIUM LEVEL 8.1 MG/DL (8.8-10.2); CARBON DIOXIDE LEVEL 31 MEQ/L (21-32); CHLORIDE LEVEL 108 MEQ/L (98-107); CREATININE FOR GFR 0.91 MG/DL (0.55-1.30); GLOMERULAR FILTRATION RATE > 60.0 (>45); GLUCOSE, FASTING 96 MG/DL (70-100); POTASSIUM SERUM 3.8 MEQ/L (3.5-5.1); SODIUM LEVEL 141 MEQ/L (136-145)
[2021-12-25 08:00] VITALS: BP 158/78
[2021-12-25] MEDS: DOCUSATE SODIUM 100MG CAPSULE PO SCH (09:05)
[2021-12-25 12:55] VITALS: BP 154/70
[2021-12-25] MEDS ORDERED: PERCOCET PO (15:05)
[2021-12-25] MEDS ORDERED: COLA100C5 PO (15:05)
== END 2021-12-25 16:35 | disposition home or self-care (01) | DRG 661 ==
LOC: M OR 06:06 → M MSPAV 13:20
PROVIDERS: ADMIT Urology; ATTEND Urology
PROC: 8E0W4CZ Robotic Assisted Procedure of Trunk Region, Percutaneous Endoscopic Approach (ICD-10-PCS; 2021-12-24)
PROC: 0TB04ZZ Excision of Right Kidney, Percutaneous Endoscopic Approach (ICD-10-PCS; principal; 2021-12-24 07:30)
DX: N28.1 Cyst of kidney, acquired (principal)

== ENCOUNTER → 2022-01-09 | Outpatient (CLI) | payer MEDICARE ==
[~2022-01-09] MED LIST changes: +COLA100C5 PO; -LR 1,000 ML IV ONE; +PERCOCET PO; -ceFAZolin SOD 2 GM in IV 1 EA IV ONE
[2022-01-09 13:07] LABS: HEMATOCRIT 44.3 % (36.0-47.0); HEMOGLOBIN 13.9 g/dl (12.0-15.5); MEAN CORPUSCULAR HEMOGLOBIN 27.4 pg (27.0-33.0); MEAN CORPUSCULAR HGB CONC 31.4 g/dl (32.0-36.5); MEAN CORPUSCULAR VOLUME 87.2 fl (80.0-96.0); PLATELET COUNT, AUTOMATED 684 10^3/uL (150-450); RED BLOOD COUNT 5.08 10^6/uL (4.00-5.40); WHITE BLOOD COUNT 9.4 10^3/uL (4.0-10.0)
[2022-01-09 13:35] LABS: CALCIUM LEVEL 9.5 MG/DL (8.8-10.2); CREATININE FOR GFR 0.99 MG/DL (0.55-1.30); GLOMERULAR FILTRATION RATE 59.4 (>45); POTASSIUM SERUM 4.7 MEQ/L (3.5-5.1)
== END ==
LOC: M WUC 09:48
PROVIDERS: ATTEND Urology
DX: D36.9 Benign neoplasm, unspecified site (principal); N28.1 Cyst of kidney, acquired

== ENCOUNTER 2022-10-08 17:56 | Emergency (ER) | payer MEDICARE ==
[~2022-10-08] VITALS: Ht 160 cm; Wt 82.7 kg
[2022-10-08] MEDS ORDERED: ALBUTEROL 90 MCG/ACT 8GM HFA INHALER INH ONE (22:10)
[2022-10-08] MEDS ORDERED: methylPREDNISolone 125MG 2ML VIAL IV ONE (22:10)
[2022-10-08] MEDS ORDERED: ISOVUE-370 76% 100ML VIAL As Ordered ONE (22:11)
[2022-10-08] MEDS ORDERED: BENZONATATE 100MG CAPSULE PO ONE (22:15)
[2022-10-08 22:19] LABS: BASO # 0.1 10^3/uL (0.0-0.2); EOS # 0.3 10^3/uL (0.0-0.5); EOS % 3.5 % (0.0-3.0); HEMATOCRIT 43.1 % (36.0-47.0); HEMOGLOBIN 13.8 g/dl (12.0-15.5); LYMPH # 2.4 10^3/uL (1.5-5.0); LYMPH % 31.8 % (24.0-44.0); MEAN CORPUSCULAR HEMOGLOBIN 27.7 pg (27.0-33.0); MEAN CORPUSCULAR VOLUME 86.5 fl (80.0-96.0); MONO # 0.5 10^3/uL (0.0-0.8); MONO % 7.1 % (2.0-8.0); NEUTROPHILS # 4.3 10^3/uL (1.5-8.5); NEUTROPHILS % 56.2 % (36.0-66.0); PLATELET COUNT, AUTOMATED 490 10^3/uL (150-450); RED BLOOD COUNT 4.98 10^6/uL (4.00-5.40); WHITE BLOOD COUNT 7.7 10^3/uL (4.0-10.0)
[2022-10-08] MEDS ORDERED: VENTAER INH (23:32)
[2022-10-08] MEDS ORDERED: MEDR4PAK PO (23:32)
[2022-10-08 23:56] VITALS: BP 156/82
[2022-10-09] MEDS ORDERED: BENZ200C70 PO (00:16)
== END 2022-10-09 00:24 | disposition home or self-care (01) ==
LOC: M ED 17:56
DX: J45.901 Unspecified asthma with (acute) exacerbation (principal); B97.4 Respiratory syncytial virus as the cause of diseases classified elsewhere; R04.2 Hemoptysis; I51.7 Cardiomegaly; I10 Essential (primary) hypertension; Z79.51 Long term (current) use of inhaled steroids; Z79.899 Other long term (current) drug therapy
CPT/HCPCS: 71046; 71275; 80047; 85025; 87486; 87581; 87633; 87798; 94640; 96374; 99283; J2930; Q9967

== ENCOUNTER → 2022-11-16 | Outpatient (CLI) | payer MEDICARE ==
[~2022-11-16] MED LIST changes: +BENZ200C70 PO; +MEDR4PAK PO; +VENTAER INH
== END ==
LOC: M WHC 07:57
PROVIDERS: ATTEND Internal Medicine
DX: Z12.31 Encounter for screening mammogram for malignant neoplasm of breast (principal)

== ENCOUNTER → 2023-03-09 | Outpatient (CLI) | payer MEDICARE ==
[2023-03-09 17:47] LABS: BASO # 0.2 10^3/uL (0.0-0.2); BASO % 1.8 % (0.0-1.0); EOS # 0.4 10^3/uL (0.0-0.5); EOS % 4.5 % (0.0-3.0); HEMATOCRIT 44.9 % (36.0-47.0); LYMPH # 2.1 10^3/uL (1.5-5.0); LYMPH % 25.4 % (24.0-44.0); MEAN CORPUSCULAR HEMOGLOBIN 28.1 pg (27.0-33.0); MEAN CORPUSCULAR HGB CONC 31.2 g/dl (32.0-36.5); MONO # 0.6 10^3/uL (0.0-0.8); MONO % 7.3 % (2.0-8.0); NEUTROPHILS % 60.5 % (36.0-66.0); PLATELET COUNT, AUTOMATED 577 10^3/uL (150-450); RED BLOOD COUNT 4.99 10^6/uL (4.00-5.40); WHITE BLOOD COUNT 8.2 10^3/uL (4.0-10.0)
[2023-03-10 14:06] LABS: JAK2 MUTATIONS FOR PATH SENDOU See Pathology Report
== END ==
LOC: M PLALAB 16:15
PROVIDERS: ATTEND Internal Medicine Hematology
DX: D47.3 Essential (hemorrhagic) thrombocythemia (principal); D75.839 Thrombocytosis, unspecified

== ENCOUNTER → 2023-04-21 | Outpatient (CLI) | payer MEDICARE ==
[2023-04-21 10:48] LABS: BASO # 0.2 10^3/uL (0.0-0.2); BASO % 2.3 % (0.0-1.0); EOS # 0.3 10^3/uL (0.0-0.5); EOS % 4.5 % (0.0-3.0); HEMATOCRIT 45.5 % (36.0-47.0); HEMOGLOBIN 14.3 g/dl (12.0-15.5); LYMPH # 1.9 10^3/uL (1.5-5.0); LYMPH % 25.3 % (24.0-44.0); MEAN CORPUSCULAR HEMOGLOBIN 28.4 pg (27.0-33.0); MEAN CORPUSCULAR HGB CONC 31.4 g/dl (32.0-36.5); MEAN CORPUSCULAR VOLUME 90.5 fl (80.0-96.0); MONO # 0.4 10^3/uL (0.0-0.8); MONO % 5.3 % (2.0-8.0); NEUTROPHILS # 4.5 10^3/uL (1.5-8.5); NEUTROPHILS % 62.1 % (36.0-66.0); PLATELET COUNT, AUTOMATED 516 10^3/uL (150-450); RED BLOOD COUNT 5.03 10^6/uL (4.00-5.40); WHITE BLOOD COUNT 7.3 10^3/uL (4.0-10.0)
[2023-04-21 11:27] LABS: ALBUMIN 4.1 G/DL (3.2-5.2); ALKALINE PHOSPHATASE 57 U/L (46-116); ALT/SGPT 25 U/L (7.0-40); AST/SGOT < 8 U/L (<34); BILIRUBIN,TOTAL 0.5 MG/DL (0.3-1.2); BLOOD UREA NITROGEN 24 MG/DL (9-23); CALCIUM LEVEL 8.9 MG/DL (8.3-10.6); CARBON DIOXIDE LEVEL 28 MMOL/L (20-31); CHLORIDE LEVEL 104 MMOL/L (98-107); CREATININE FOR GFR 0.87 MG/DL (0.55-1.30); GLOMERULAR FILTRATION RATE > 60.0 (>39); GLUCOSE, FASTING 108 MG/DL (74-106); POTASSIUM SERUM 4.1 MMOL/L (3.5-5.1); SODIUM LEVEL 141 MMOL/L (136-145); TOTAL PROTEIN 6.9 G/DL (5.7-8.2)
== END ==
LOC: M PLALAB 07:32
PROVIDERS: ATTEND Internal Medicine Hematology
DX: D47.3 Essential (hemorrhagic) thrombocythemia (principal)

== ENCOUNTER → 2023-05-05 | Outpatient (CLI) | payer MEDICARE ==
[2023-05-05 10:37] LABS: BASO # 0.2 10^3/uL (0.0-0.2); BASO % 2.7 % (0.0-1.0); EOS # 0.3 10^3/uL (0.0-0.5); EOS % 4.2 % (0.0-3.0); HEMATOCRIT 45.6 % (36.0-47.0); HEMOGLOBIN 14.4 g/dl (12.0-15.5); LYMPH % 31.4 % (24.0-44.0); MEAN CORPUSCULAR HEMOGLOBIN 28.8 pg (27.0-33.0); MEAN CORPUSCULAR HGB CONC 31.6 g/dl (32.0-36.5); MEAN CORPUSCULAR VOLUME 91.2 fl (80.0-96.0); MONO # 0.4 10^3/uL (0.0-0.8); MONO % 6.9 % (2.0-8.0); NEUTROPHILS # 3.4 10^3/uL (1.5-8.5); NEUTROPHILS % 54.6 % (36.0-66.0); PLATELET COUNT, AUTOMATED 427 10^3/uL (150-450); WHITE BLOOD COUNT 6.3 10^3/uL (4.0-10.0)
== END ==
LOC: M PLALAB 08:54
PROVIDERS: ATTEND Internal Medicine Hematology
DX: D47.3 Essential (hemorrhagic) thrombocythemia (principal)

== ENCOUNTER → 2023-05-18 | Outpatient (CLI) | payer MEDICARE ==
[2023-05-18 13:59] LABS: ALKALINE PHOSPHATASE 57 U/L (46-116); ALT/SGPT 24 U/L (7.0-40); AST/SGOT 16 U/L (<34); BILIRUBIN,TOTAL 0.6 MG/DL (0.3-1.2); BLOOD UREA NITROGEN 20 MG/DL (9-23); CALCIUM LEVEL 9.1 MG/DL (8.3-10.6); CARBON DIOXIDE LEVEL 30 MMOL/L (20-31); CHLORIDE LEVEL 105 MMOL/L (98-107); CREATININE FOR GFR 0.82 MG/DL (0.55-1.30); GLOMERULAR FILTRATION RATE > 60.0 (>39); GLUCOSE, FASTING 103 MG/DL (74-106); POTASSIUM SERUM 3.9 MMOL/L (3.5-5.1); SODIUM LEVEL 140 MMOL/L (136-145); TOTAL PROTEIN 7.1 G/DL (5.7-8.2)
[2023-05-18 14:00] LABS: BASO # 0.1 10^3/uL (0.0-0.2); BASO % 2.3 % (0.0-1.0); EOS # 0.2 10^3/uL (0.0-0.5); EOS % 3.4 % (0.0-3.0); HEMOGLOBIN 14.2 g/dl (12.0-15.5); LYMPH # 1.7 10^3/uL (1.5-5.0); LYMPH % 27.9 % (24.0-44.0); MEAN CORPUSCULAR HEMOGLOBIN 29.1 pg (27.0-33.0); MEAN CORPUSCULAR HGB CONC 31.6 g/dl (32.0-36.5); MEAN CORPUSCULAR VOLUME 92.2 fl (80.0-96.0); MONO # 0.4 10^3/uL (0.0-0.8); MONO % 6.7 % (2.0-8.0); NEUTROPHILS # 3.5 10^3/uL (1.5-8.5); NEUTROPHILS % 59.4 % (36.0-66.0); PLATELET COUNT, AUTOMATED 351 10^3/uL (150-450); RED BLOOD COUNT 4.88 10^6/uL (4.00-5.40)
[2023-05-18 14:01] LABS: FREE T4 1.08 NG/DL (0.89-1.76)
[2023-05-18 14:02] LABS: THYROID STIMULATING HORMONE 1.145 uIU/ML (0.55-4.78)
== END ==
LOC: M PLALAB 10:11
PROVIDERS: ATTEND Internal Medicine Hematology
DX: R53.82 Chronic fatigue, unspecified (principal); D47.3 Essential (hemorrhagic) thrombocythemia

== ENCOUNTER → 2023-05-28 | Outpatient (CLI) | payer MEDICARE ==
[2023-05-28 10:29] LABS: BASO # 0.2 10^3/uL (0.0-0.2); EOS # 0.2 10^3/uL (0.0-0.5); EOS % 3.4 % (0.0-3.0); HEMATOCRIT 43.6 % (36.0-47.0); HEMOGLOBIN 13.8 g/dl (12.0-15.5); LYMPH # 1.7 10^3/uL (1.5-5.0); MEAN CORPUSCULAR HEMOGLOBIN 29.5 pg (27.0-33.0); MEAN CORPUSCULAR HGB CONC 31.7 g/dl (32.0-36.5); MEAN CORPUSCULAR VOLUME 93.2 fl (80.0-96.0); MONO # 0.4 10^3/uL (0.0-0.8); MONO % 7.2 % (2.0-8.0); NEUTROPHILS # 2.9 10^3/uL (1.5-8.5); NEUTROPHILS % 54.2 % (36.0-66.0); PLATELET COUNT, AUTOMATED 329 10^3/uL (150-450); RED BLOOD COUNT 4.68 10^6/uL (4.00-5.40); WHITE BLOOD COUNT 5.3 10^3/uL (4.0-10.0)
[2023-05-28 10:53] LABS: ALBUMIN 4.1 G/DL (3.2-5.2); ALKALINE PHOSPHATASE 58 U/L (46-116); ALT/SGPT 26 U/L (7.0-40); AST/SGOT 16 U/L (<34); BILIRUBIN,TOTAL 0.4 MG/DL (0.3-1.2); BLOOD UREA NITROGEN 20 MG/DL (9-23); CALCIUM LEVEL 9.1 MG/DL (8.3-10.6); CARBON DIOXIDE LEVEL 30 MMOL/L (20-31); CHLORIDE LEVEL 105 MMOL/L (98-107); CREATININE FOR GFR 0.86 MG/DL (0.55-1.30); GLOMERULAR FILTRATION RATE > 60.0 (>39); GLUCOSE, FASTING 104 MG/DL (74-106); POTASSIUM SERUM 4.2 MMOL/L (3.5-5.1); SODIUM LEVEL 143 MMOL/L (136-145)
[2023-05-28 10:55] LABS: FREE T4 1.03 NG/DL (0.89-1.76)
[2023-05-28 10:56] LABS: THYROID STIMULATING HORMONE 1.727 uIU/ML (0.55-4.78)
== END ==
LOC: M PLALAB 08:20
PROVIDERS: ATTEND Internal Medicine Hematology
DX: D47.3 Essential (hemorrhagic) thrombocythemia (principal); E07.9 Disorder of thyroid, unspecified

== ENCOUNTER → 2023-06-01 | Outpatient (CLI) | payer MEDICARE ==
[2023-06-01 10:47] LABS: BASO # 0.1 10^3/uL (0.0-0.2); BASO % 2.2 % (0.0-1.0); EOS # 0.2 10^3/uL (0.0-0.5); EOS % 3.7 % (0.0-3.0); HEMATOCRIT 41.5 % (36.0-47.0); HEMOGLOBIN 13.4 g/dl (12.0-15.5); LYMPH # 1.7 10^3/uL (1.5-5.0); LYMPH % 31.7 % (24.0-44.0); MEAN CORPUSCULAR HEMOGLOBIN 30.2 pg (27.0-33.0); MEAN CORPUSCULAR HGB CONC 32.3 g/dl (32.0-36.5); MEAN CORPUSCULAR VOLUME 93.7 fl (80.0-96.0); MONO # 0.4 10^3/uL (0.0-0.8); MONO % 7.5 % (2.0-8.0); NEUTROPHILS % 54.9 % (36.0-66.0); PLATELET COUNT, AUTOMATED 310 10^3/uL (150-450); RED BLOOD COUNT 4.43 10^6/uL (4.00-5.40); WHITE BLOOD COUNT 5.5 10^3/uL (4.0-10.0)
== END ==
LOC: M PLALAB 08:14
PROVIDERS: ATTEND Internal Medicine Hematology
DX: D47.3 Essential (hemorrhagic) thrombocythemia (principal)

== ENCOUNTER → 2023-06-15 | Outpatient (CLI) | payer MEDICARE ==
[2023-06-15 13:48] LABS: BASO # 0.1 10^3/uL (0.0-0.2); BASO % 2.2 % (0.0-1.0); EOS # 0.2 10^3/uL (0.0-0.5); EOS % 2.6 % (0.0-3.0); HEMATOCRIT 41.8 % (36.0-47.0); HEMOGLOBIN 13.3 g/dl (12.0-15.5); LYMPH # 1.8 10^3/uL (1.5-5.0); LYMPH % 31.1 % (24.0-44.0); MEAN CORPUSCULAR HEMOGLOBIN 30.4 pg (27.0-33.0); MEAN CORPUSCULAR HGB CONC 31.8 g/dl (32.0-36.5); MEAN CORPUSCULAR VOLUME 95.7 fl (80.0-96.0); MONO # 0.4 10^3/uL (0.0-0.8); MONO % 6.1 % (2.0-8.0); NEUTROPHILS # 3.4 10^3/uL (1.5-8.5); NEUTROPHILS % 57.7 % (36.0-66.0); PLATELET COUNT, AUTOMATED 310 10^3/uL (150-450); RED BLOOD COUNT 4.37 10^6/uL (4.00-5.40); WHITE BLOOD COUNT 5.9 10^3/uL (4.0-10.0)
== END ==
LOC: M PLALAB 10:09
PROVIDERS: ATTEND Internal Medicine Hematology
DX: D47.3 Essential (hemorrhagic) thrombocythemia (principal)

== ENCOUNTER → 2023-06-28 | Outpatient (CLI) | payer MEDICARE ==
[2023-06-28 14:12] LABS: BASO # 0.1 10^3/uL (0.0-0.2); EOS # 0.2 10^3/uL (0.0-0.5); EOS % 3.9 % (0.0-3.0); HEMATOCRIT 42.9 % (36.0-47.0); HEMOGLOBIN 13.7 g/dl (12.0-15.5); LYMPH # 1.8 10^3/uL (1.5-5.0); LYMPH % 30.8 % (24.0-44.0); MEAN CORPUSCULAR HEMOGLOBIN 31.3 pg (27.0-33.0); MEAN CORPUSCULAR HGB CONC 31.9 g/dl (32.0-36.5); MEAN CORPUSCULAR VOLUME 97.9 fl (80.0-96.0); MONO # 0.4 10^3/uL (0.0-0.8); MONO % 7.4 % (2.0-8.0); NEUTROPHILS # 3.3 10^3/uL (1.5-8.5); NEUTROPHILS % 55.6 % (36.0-66.0); PLATELET COUNT, AUTOMATED 325 10^3/uL (150-450); RED BLOOD COUNT 4.38 10^6/uL (4.00-5.40); WHITE BLOOD COUNT 5.9 10^3/uL (4.0-10.0)
== END ==
LOC: M PLALAB 09:02
PROVIDERS: ATTEND Internal Medicine Hematology
DX: D47.3 Essential (hemorrhagic) thrombocythemia (principal)

== ENCOUNTER → 2023-06-29 | Outpatient (CLI) | payer MEDICARE ==
[2023-06-29 13:38] LABS: ALBUMIN 3.9 G/DL (3.2-5.2); ALKALINE PHOSPHATASE 54 U/L (46-116); ALT/SGPT 26 U/L (7.0-40); AST/SGOT 18 U/L (<34); BILIRUBIN,TOTAL 0.4 MG/DL (0.3-1.2); BLOOD UREA NITROGEN 20 MG/DL (9-23); CALCIUM LEVEL 9.1 MG/DL (8.3-10.6); CARBON DIOXIDE LEVEL 29 MMOL/L (20-31); CHLORIDE LEVEL 106 MMOL/L (98-107); CREATININE FOR GFR 0.85 MG/DL (0.55-1.30); GLOMERULAR FILTRATION RATE > 60.0 (>39); GLUCOSE, FASTING 113 MG/DL (74-106); POTASSIUM SERUM 4.2 MMOL/L (3.5-5.1); SODIUM LEVEL 142 MMOL/L (136-145); TOTAL PROTEIN 6.8 G/DL (5.7-8.2)
[2023-06-29 13:39] LABS: THYROID STIMULATING HORMONE 1.528 uIU/ML (0.55-4.78)
== END ==
LOC: M PLALAB 08:54
PROVIDERS: ATTEND Internal Medicine Hematology
DX: D47.3 Essential (hemorrhagic) thrombocythemia (principal); Z79.899 Other long term (current) drug therapy

== ENCOUNTER 2023-08-18 08:33 | Emergency (ER) | payer MEDICARE ==
[~2023-08-18] VITALS: Ht 160 cm; Wt 84.1 kg
[2023-08-18] MEDS ORDERED: NS 500 ML IV ONE (08:55)
[2023-08-18 09:09] LABS: VENOUS BASE EXCESS -0.1 (-2.0-2.0); VENOUS HCO3 25.5 MMOL/L (23.0-27.0); VENOUS O2 SATURATION 74.6 % (60.0-80.0); VENOUS PARTIAL PRESSURE CO2 45.4 mmHg (38.0-50.0); VENOUS PARTIAL PRESSURE O2 39.7 mmHg (30.0-50.0); VENOUS PH 7.368 UNITS (7.330-7.430); VENOUS STANDARD HCO3 23.9 MMOL/L; VENOUS TOTAL CO2 26.9 MMOL/L (24.0-28.0)
[2023-08-18 09:14] LABS: BASO # 0.1 10^3/uL (0.0-0.2); BASO % 1.9 % (0.0-1.0); EOS # 0.2 10^3/uL (0.0-0.5); EOS % 3.3 % (0.0-3.0); HEMATOCRIT 39.1 % (36.0-47.0); HEMOGLOBIN 12.8 g/dl (12.0-15.5); LYMPH # 1.2 10^3/uL (1.5-5.0); LYMPH % 25.5 % (24.0-44.0); MEAN CORPUSCULAR HEMOGLOBIN 33.2 pg (27.0-33.0); MEAN CORPUSCULAR HGB CONC 32.7 g/dl (32.0-36.5); MEAN CORPUSCULAR VOLUME 101.3 fl (80.0-96.0); MONO # 0.3 10^3/uL (0.0-0.8); MONO % 5.4 % (2.0-8.0); NEUTROPHILS % 63.5 % (36.0-66.0); PLATELET COUNT, AUTOMATED 274 10^3/uL (150-450); RED BLOOD COUNT 3.86 10^6/uL (4.00-5.40); WHITE BLOOD COUNT 4.8 10^3/uL (4.0-10.0)
[2023-08-18 09:34] LABS: OSMOLALITY SERUM 294 MOSM/KG (280-301)
[2023-08-18 09:39] LABS: ALBUMIN 3.6 G/DL (3.2-5.2); ALKALINE PHOSPHATASE 51 U/L (46-116); ALT/SGPT 29 U/L (7.0-40); AST/SGOT 29 U/L (<34); BILIRUBIN,DIRECT 0.1 MG/DL (<0.4); BILIRUBIN,TOTAL 0.4 MG/DL (0.3-1.2); BLOOD UREA NITROGEN 14 MG/DL (9-23); CALCIUM LEVEL 8.4 MG/DL (8.3-10.6); CARBON DIOXIDE LEVEL 28 MMOL/L (20-31); CHLORIDE LEVEL 105 MMOL/L (98-107); GLOMERULAR FILTRATION RATE > 60.0 (>39); GLUCOSE, FASTING 137 MG/DL (74-106); SODIUM LEVEL 140 MMOL/L (136-145); TOTAL PROTEIN 6.6 G/DL (5.7-8.2)
[2023-08-18 09:41] LABS: THYROID STIMULATING HORMONE 0.945 uIU/ML (0.55-4.78)
[2023-08-18] MEDS ORDERED: AMOX875T2 PO (13:15)
[2023-08-18 14:15] VITALS: BP 173/84; TEMP 98.2; O2SAT 97
== END 2023-08-18 14:29 | disposition home or self-care (01) ==
LOC: EDBD 08:33 → M ED 08:33
DX: I95.1 Orthostatic hypotension (principal); I44.0 Atrioventricular block, first degree; H81.4 Vertigo of central origin; I10 Essential (primary) hypertension; M54.50 Low back pain, unspecified; Z96.651 Presence of right artificial knee joint; Z79.52 Long term (current) use of systemic steroids; Z91.018 Allergy to other foods; Z79.899 Other long term (current) drug therapy

== ENCOUNTER → 2023-08-27 | Outpatient (CLI) | payer MEDICARE ==
[~2023-08-27] MED LIST changes: +AMOX875T2 PO
[2023-08-27 14:10] LABS: BASO # 0.1 10^3/uL (0.0-0.2); BASO % 1.9 % (0.0-1.0); EOS # 0.1 10^3/uL (0.0-0.5); HEMATOCRIT 41.9 % (36.0-47.0); HEMOGLOBIN 13.9 g/dl (12.0-15.5); LYMPH # 1.3 10^3/uL (1.5-5.0); LYMPH % 20.1 % (24.0-44.0); MEAN CORPUSCULAR HEMOGLOBIN 33.9 pg (27.0-33.0); MEAN CORPUSCULAR HGB CONC 33.2 g/dl (32.0-36.5); MEAN CORPUSCULAR VOLUME 102.2 fl (80.0-96.0); MONO # 0.5 10^3/uL (0.0-0.8); MONO % 7.1 % (2.0-8.0); NEUTROPHILS # 4.5 10^3/uL (1.5-8.5); NEUTROPHILS % 68.6 % (36.0-66.0); PLATELET COUNT, AUTOMATED 333 10^3/uL (150-450); WHITE BLOOD COUNT 6.5 10^3/uL (4.0-10.0)
[2023-08-27 14:32] LABS: ALKALINE PHOSPHATASE 54 U/L (46-116); ALT/SGPT 34 U/L (7.0-40); AST/SGOT 24 U/L (<34); BILIRUBIN,TOTAL 0.7 MG/DL (0.3-1.2); BLOOD UREA NITROGEN 18 MG/DL (9-23); CALCIUM LEVEL 9.3 MG/DL (8.3-10.6); CARBON DIOXIDE LEVEL 30 MMOL/L (20-31); CHLORIDE LEVEL 104 MMOL/L (98-107); CREATININE FOR GFR 0.86 MG/DL (0.55-1.30); GLOMERULAR FILTRATION RATE > 60.0 (>39); GLUCOSE, FASTING 101 MG/DL (74-106); POTASSIUM SERUM 4.2 MMOL/L (3.5-5.1); SODIUM LEVEL 141 MMOL/L (136-145); TOTAL PROTEIN 7.1 G/DL (5.7-8.2)
== END ==
LOC: M PLALAB 09:28
PROVIDERS: ATTEND Internal Medicine Hematology
DX: D47.3 Essential (hemorrhagic) thrombocythemia (principal)

== ENCOUNTER → 2023-09-27 | Outpatient (CLI) | payer MEDICARE ==
[2023-09-27 11:30] LABS: BASO # 0.1 10^3/uL (0.0-0.2); BASO % 2.1 % (0.0-1.0); EOS # 0.2 10^3/uL (0.0-0.5); EOS % 3.5 % (0.0-3.0); HEMATOCRIT 40.6 % (36.0-47.0); HEMOGLOBIN 13.5 g/dl (12.0-15.5); LYMPH # 1.6 10^3/uL (1.5-5.0); LYMPH % 30.7 % (24.0-44.0); MEAN CORPUSCULAR HEMOGLOBIN 34.1 pg (27.0-33.0); MEAN CORPUSCULAR HGB CONC 33.3 g/dl (32.0-36.5); MEAN CORPUSCULAR VOLUME 102.5 fl (80.0-96.0); MONO # 0.4 10^3/uL (0.0-0.8); MONO % 7.9 % (2.0-8.0); NEUTROPHILS # 2.8 10^3/uL (1.5-8.5); NEUTROPHILS % 54.8 % (36.0-66.0); PLATELET COUNT, AUTOMATED 312 10^3/uL (150-450); RED BLOOD COUNT 3.96 10^6/uL (4.00-5.40); WHITE BLOOD COUNT 5.2 10^3/uL (4.0-10.0)
[2023-09-27 11:59] LABS: ALBUMIN 3.9 G/DL (3.2-5.2); ALKALINE PHOSPHATASE 54 U/L (46-116); ALT/SGPT 26 U/L (7.0-40); AST/SGOT 20 U/L (<34); BILIRUBIN,TOTAL 0.5 MG/DL (0.3-1.2); BLOOD UREA NITROGEN 20 MG/DL (9-23); CALCIUM LEVEL 9.5 MG/DL (8.3-10.6); CARBON DIOXIDE LEVEL 30 MMOL/L (20-31); CHLORIDE LEVEL 103 MMOL/L (98-107); CREATININE FOR GFR 0.92 MG/DL (0.55-1.30); GLOMERULAR FILTRATION RATE > 60.0 (>39); GLUCOSE, FASTING 106 MG/DL (74-106); POTASSIUM SERUM 4.2 MMOL/L (3.5-5.1); SODIUM LEVEL 140 MMOL/L (136-145); TOTAL PROTEIN 7.1 G/DL (5.7-8.2)
== END ==
LOC: M PLALAB 08:42
PROVIDERS: ATTEND Internal Medicine Hematology
DX: D47.3 Essential (hemorrhagic) thrombocythemia (principal)

== ENCOUNTER → 2023-11-26 | Outpatient (CLI) | payer MEDICARE ==
[2023-11-26 10:14] LABS: HEMATOCRIT 39.5 % (36.0-47.0); HEMOGLOBIN 13.3 g/dl (12.0-15.5); MEAN CORPUSCULAR HEMOGLOBIN 33.8 pg (27.0-33.0); MEAN CORPUSCULAR HGB CONC 33.7 g/dl (32.0-36.5); MEAN CORPUSCULAR VOLUME 100.3 fl (80.0-96.0); PLATELET COUNT, AUTOMATED 327 10^3/uL (150-450); RED BLOOD COUNT 3.94 10^6/uL (4.00-5.40); WHITE BLOOD COUNT 5.5 10^3/uL (4.0-10.0)
[2023-11-26 10:25] LABS: HEMOGLOBIN A1c 5.7 % (4.0-6.0)
[2023-11-26 10:40] LABS: C REACTIVE PROTEIN QUANTITATIV < 0.40 MG/DL (<1.0)
[2023-11-26 10:41] LABS: ALBUMIN 3.9 G/DL (3.2-5.2); ALKALINE PHOSPHATASE 54 U/L (46-116); ALT/SGPT 27 U/L (7.0-40); AST/SGOT 20 U/L (<34); BILIRUBIN,TOTAL 0.5 MG/DL (0.3-1.2); BLOOD UREA NITROGEN 19 MG/DL (9-23); CALCIUM LEVEL 8.6 MG/DL (8.3-10.6); CARBON DIOXIDE LEVEL 27 MMOL/L (20-31); CHLORIDE LEVEL 109 MMOL/L (98-107); CHOLESTEROL LEVEL 171 MG/DL (<200); CHOLESTEROL RISK RATIO 2.97 (<5); CREATININE FOR GFR 0.83 MG/DL (0.55-1.30); FREE T4 1.01 NG/DL (0.89-1.76); GLOMERULAR FILTRATION RATE > 60.0 (>39); GLUCOSE, FASTING 125 MG/DL (74-106); HDL CHOLESTEROL 57.4 MG/DL (>40); LDL CHOLESTEROL 95.2 MG/DL (<100); NON-HDL-C 113.6 MG/DL; POTASSIUM SERUM 3.8 MMOL/L (3.5-5.1); SODIUM LEVEL 142 MMOL/L (136-145); THYROID STIMULATING HORMONE 1.243 uIU/ML (0.55-4.78); TOTAL PROTEIN 6.9 G/DL (5.7-8.2); TRIGLYCERIDES LEVEL 92 MG/DL (<150)
[2023-11-26 10:42] LABS: VITAMIN B12 LEVEL 1111 PG/ML (211-911)
[2023-11-26 10:50] LABS: CREATININE, URINE 335.2 MG/DL; MAU/CREAT RATIO 15.8 MCG/MG (0.0-30.0)
== END ==
LOC: M PLALAB 08:56
PROVIDERS: ATTEND Internal Medicine Hematology
DX: I10 Essential (primary) hypertension (principal); Z79.899 Other long term (current) drug therapy

== ENCOUNTER → 2023-11-26 | Outpatient (CLI) | payer MEDICARE | LOC: M WHC 13:31 | PROVIDERS: ATTEND Internal Medicine | DX: Z12.31 Encounter for screening mammogram for malignant neoplasm of breast (principal); Z13.820 Encounter for screening for osteoporosis; M85.851 Other specified disorders of bone density and structure, right thigh; M85.852 Other specified disorders of bone density and structure, left thigh ==

== ENCOUNTER → 2024-01-13 | Day surgery (SDC) | payer MEDICARE ==
[~2024-01-13] VITALS: Ht 160 cm; Wt 81.2 kg
[~2024-01-13] MED LIST changes: +BAYE81TA10 PO; +CALC500T68 PO; +D-10TAB3 PO; +GNPTAB PO; +HYDR500C3 PO; +IBUP-1425 PO; +LEVOTAB10 PO; +NORV5TAB PO; +OSTE5TAB PO; +REST0.05 OU; +THERTAB52 PO; +VITA-243 PO; +[UNRECOGNIZED DRUG - OTHER] PO; +propofoL 500 MG/50 ML VIAL As Ordered ONE
[2024-01-13] MEDS: NS 1,000 ML IV ONE (13:49)
[2024-01-13 15:28] VITALS: TEMP 97.9
[2024-01-13 15:51] VITALS: BP 125/59; O2SAT 98
== END | disposition home or self-care (01) ==
LOC: M OPP 13:23
PROVIDERS: ATTEND Surgery
DX: Z86.010 Personal history of colon polyps (principal); D12.6 Benign neoplasm of colon, unspecified; K57.30 Diverticulosis of large intestine without perforation or abscess without bleeding; Z79.1 Long term (current) use of non-steroidal anti-inflammatories (NSAID); Z79.82 Long term (current) use of aspirin; Z79.64 Long term (current) use of myelosuppressive agent; Z79.899 Other long term (current) drug therapy

== ENCOUNTER → 2024-02-29 | Outpatient (REF) | payer MEDICARE ==
[~2024-02-29] MED LIST changes: -propofoL 500 MG/50 ML VIAL As Ordered ONE
== END ==
LOC: M LAB REF 16:42
PROVIDERS: ATTEND Internal Medicine
DX: N18.31 Chronic kidney disease, stage 3a (principal); R42 Dizziness and giddiness; D48.5 Neoplasm of uncertain behavior of skin

== ENCOUNTER → 2024-05-24 | Outpatient (CLI) | payer MEDICARE ==
[2024-05-24 10:40] LABS: HEMATOCRIT 41.4 % (36.0-47.0); HEMOGLOBIN 13.7 g/dl (12.0-15.5); MEAN CORPUSCULAR HEMOGLOBIN 33.3 pg (27.0-33.0); MEAN CORPUSCULAR HGB CONC 33.1 g/dl (32.0-36.5); MEAN CORPUSCULAR VOLUME 100.5 fl (80.0-96.0); PLATELET COUNT, AUTOMATED 317 10^3/uL (150-450); RED BLOOD COUNT 4.12 10^6/uL (4.00-5.40); WHITE BLOOD COUNT 5.5 10^3/uL (4.0-10.0)
[2024-05-24 10:49] LABS: C REACTIVE PROTEIN QUANTITATIV < 0.40 MG/DL (<1.0)
[2024-05-24 10:50] LABS: TOTAL 25(OH) VITAMIN D 59.5 NG/ML (20.0-100.0); VITAMIN B12 LEVEL 535 PG/ML (211-911)
[2024-05-24 10:51] LABS: ALBUMIN 3.9 G/DL (3.2-5.2); ALKALINE PHOSPHATASE 70 U/L (46-116); ALT/SGPT 19 U/L (7.0-40); AST/SGOT 13 U/L (<34); BILIRUBIN,TOTAL 0.7 MG/DL (0.3-1.2); BLOOD UREA NITROGEN 20 MG/DL (9-23); CALCIUM LEVEL 9.4 MG/DL (8.3-10.6); CARBON DIOXIDE LEVEL 30 MMOL/L (20-31); CHLORIDE LEVEL 107 MMOL/L (98-107); CHOLESTEROL LEVEL 204 MG/DL (<200); CHOLESTEROL RISK RATIO 3.61 (<5); CREATININE FOR GFR 0.89 MG/DL (0.55-1.30); FREE T4 1.02 NG/DL (0.89-1.76); GLOMERULAR FILTRATION RATE > 60.0 (>39); GLUCOSE, FASTING 114 MG/DL (74-106); HDL CHOLESTEROL 56.4 MG/DL (>40); LDL CHOLESTEROL 128.2 MG/DL (<100); NON-HDL-C 147.6 MG/DL; SODIUM LEVEL 141 MMOL/L (136-145); THYROID STIMULATING HORMONE 1.135 uIU/ML (0.55-4.78); TOTAL PROTEIN 6.9 G/DL (5.7-8.2); TRIGLYCERIDES LEVEL 97 MG/DL (<150)
[2024-05-24 11:24] LABS: HEMOGLOBIN A1c 5.6 % (4.0-6.0)
== END ==
LOC: M PLALAB 08:10
PROVIDERS: ATTEND Internal Medicine Hematology
DX: R73.03 Prediabetes (principal); Z79.899 Other long term (current) drug therapy

== ENCOUNTER → 2024-08-01 | Outpatient (CLI) | payer MEDICARE ==
[2024-08-01 13:33] LABS: C REACTIVE PROTEIN QUANTITATIV < 0.40 MG/DL (<1.0)
[2024-08-01 13:35] LABS: ALBUMIN 4.2 G/DL (3.2-5.2); ALKALINE PHOSPHATASE 73 U/L (46-116); ALT/SGPT 23 U/L (7.0-40); AST/SGOT 19 U/L (<34); BILIRUBIN,TOTAL 0.8 MG/DL (0.3-1.2); BLOOD UREA NITROGEN 25 MG/DL (9-23); CALCIUM LEVEL 9.8 MG/DL (8.3-10.6); CARBON DIOXIDE LEVEL 29 MMOL/L (20-31); CHLORIDE LEVEL 104 MMOL/L (98-107); CHOLESTEROL LEVEL 199 MG/DL (<200); CHOLESTEROL RISK RATIO 3.28 (<5); CREATININE FOR GFR 1.08 MG/DL (0.55-1.30); GLOMERULAR FILTRATION RATE 53.2 (>39); GLUCOSE, FASTING 106 MG/DL (74-106); HDL CHOLESTEROL 60.5 MG/DL (>40); LDL CHOLESTEROL 118.1 MG/DL (<100); NON-HDL-C 138.5 MG/DL; POTASSIUM SERUM 4.3 MMOL/L (3.5-5.1); SODIUM LEVEL 136 MMOL/L (136-145); THYROID STIMULATING HORMONE 1.181 uIU/ML (0.55-4.78); TOTAL PROTEIN 7.5 G/DL (5.7-8.2); TRIGLYCERIDES LEVEL 102 MG/DL (<150)
[2024-08-01 13:36] LABS: FREE T4 1.23 NG/DL (0.89-1.76); TOTAL 25(OH) VITAMIN D 50.4 NG/ML (20.0-100.0); VITAMIN B12 LEVEL 544 PG/ML (211-911)
[2024-08-01 13:49] LABS: HEMATOCRIT 42.6 % (36.0-47.0); MEAN CORPUSCULAR HEMOGLOBIN 33.3 pg (27.0-33.0); MEAN CORPUSCULAR HGB CONC 32.9 g/dl (32.0-36.5); MEAN CORPUSCULAR VOLUME 101.4 fl (80.0-96.0); PLATELET COUNT, AUTOMATED 329 10^3/uL (150-450); WHITE BLOOD COUNT 6.4 10^3/uL (4.0-10.0)
[2024-08-01 13:53] LABS: HEMOGLOBIN A1c 5.5 % (4.0-6.0)
[2024-08-01 14:19] LABS: CREATININE, URINE 508.7 MG/DL; MAU/CREAT RATIO 31.6 MCG/MG (0.0-30.0)
== END ==
LOC: M PLALAB 10:28
PROVIDERS: ATTEND Internal Medicine Hematology
DX: R73.03 Prediabetes (principal); E78.00 Pure hypercholesterolemia, unspecified

== ENCOUNTER → 2024-11-22 | Outpatient (CLI) | payer MEDICARE ==
[2024-11-22 10:32] LABS: BASO # 0.1 10^3/uL (0.0-0.2); BASO % 2.1 % (0.0-1.0); EOS # 0.2 10^3/uL (0.0-0.5); EOS % 3.2 % (0.0-3.0); HEMATOCRIT 43.5 % (36.0-47.0); HEMOGLOBIN 14.2 g/dl (12.0-15.5); LYMPH # 1.5 10^3/uL (1.5-5.0); MEAN CORPUSCULAR HEMOGLOBIN 33.2 pg (27.0-33.0); MEAN CORPUSCULAR HGB CONC 32.6 g/dl (32.0-36.5); MEAN CORPUSCULAR VOLUME 101.6 fl (80.0-96.0); MONO # 0.4 10^3/uL (0.0-0.8); MONO % 7.5 % (2.0-8.0); NEUTROPHILS # 3.4 10^3/uL (1.5-8.5); NEUTROPHILS % 59.8 % (36.0-66.0); PLATELET COUNT, AUTOMATED 320 10^3/uL (150-450); RED BLOOD COUNT 4.28 10^6/uL (4.00-5.40); WHITE BLOOD COUNT 5.6 10^3/uL (4.0-10.0)
[2024-11-22 11:02] LABS: ALBUMIN 4.1 G/DL (3.2-5.2); BILIRUBIN,TOTAL 0.7 MG/DL (0.3-1.2); CALCIUM LEVEL 9.3 MG/DL (8.3-10.6); CREATININE FOR GFR 1.03 MG/DL (0.55-1.30); GLOMERULAR FILTRATION RATE 56.2 (>39); POTASSIUM SERUM 4.4 MMOL/L (3.5-5.1); TOTAL PROTEIN 7.4 G/DL (5.7-8.2)
== END ==
LOC: M PLALAB 09:09
PROVIDERS: ATTEND Internal Medicine Hematology
DX: D47.3 Essential (hemorrhagic) thrombocythemia (principal)

== ENCOUNTER → 2025-03-15 | Outpatient (CLI) | payer MEDICARE ==
[~2025-03-15] MED LIST changes: -TRET0.02 EX; +TRET0.046 EX
[2025-03-15 11:11] LABS: BASO # 0.1 10^3/uL (0.0-0.2); BASO % 1.9 % (0.0-1.0); EOS # 0.3 10^3/uL (0.0-0.5); EOS % 3.9 % (0.0-3.0); HEMATOCRIT 43.6 % (36.0-47.0); HEMOGLOBIN 14.2 g/dl (12.0-15.5); LYMPH # 1.5 10^3/uL (1.5-5.0); LYMPH % 21.8 % (24.0-44.0); MEAN CORPUSCULAR HEMOGLOBIN 32.7 pg (27.0-33.0); MEAN CORPUSCULAR HGB CONC 32.6 g/dl (32.0-36.5); MEAN CORPUSCULAR VOLUME 100.5 fl (80.0-96.0); MONO # 0.5 10^3/uL (0.0-0.8); MONO % 6.9 % (2.0-8.0); NEUTROPHILS # 4.4 10^3/uL (1.5-8.5); NEUTROPHILS % 65.1 % (36.0-66.0); PLATELET COUNT, AUTOMATED 383 10^3/uL (150-450); RED BLOOD COUNT 4.34 10^6/uL (4.00-5.40); WHITE BLOOD COUNT 6.7 10^3/uL (4.0-10.0)
[2025-03-15 11:39] LABS: BILIRUBIN,TOTAL 0.7 MG/DL (0.3-1.2); CALCIUM LEVEL 9.5 MG/DL (8.3-10.6); GLOMERULAR FILTRATION RATE 59.9 (>39); POTASSIUM SERUM 4.4 MMOL/L (3.5-5.1); TOTAL PROTEIN 7.2 G/DL (5.7-8.2)
== END ==
LOC: M PLALAB 09:01
PROVIDERS: ATTEND Specialist
DX: D47.3 Essential (hemorrhagic) thrombocythemia (principal)

== ENCOUNTER → 2025-05-16 | Outpatient (CLI) | payer MEDICARE ==
[2025-05-16 12:55] LABS: BASO # 0.1 10^3/uL (0.0-0.2); BASO % 1.7 % (0.0-1.0); EOS # 0.4 10^3/uL (0.0-0.5); EOS % 5.4 % (0.0-3.0); LYMPH # 1.7 10^3/uL (1.5-5.0); LYMPH % 22.7 % (24.0-44.0); MONO # 0.6 10^3/uL (0.0-0.8); MONO % 7.3 % (2.0-8.0); NEUTROPHILS # 4.8 10^3/uL (1.5-8.5); NEUTROPHILS % 62.4 % (36.0-66.0); PLATELET COUNT, AUTOMATED 484 10^3/uL (150-450)
[2025-05-16 12:58] LABS: ALT/SGPT 24.0 U/L (7.0-40); AST/SGOT 24.0 U/L (<34); CALCIUM LEVEL 9.3 MG/DL (8.3-10.6); CARBON DIOXIDE LEVEL 29.0 MMOL/L (20-31); CHLORIDE LEVEL 105.0 MMOL/L (98-107); CREATININE FOR GFR 0.93 MG/DL (0.55-1.30); GLOMERULAR FILTRATION RATE 65.3 (>39); POTASSIUM SERUM 4.4 MMOL/L (3.5-5.1); SODIUM LEVEL 145.0 MMOL/L (136-145)
== END ==
LOC: M PLALAB 08:52
PROVIDERS: ATTEND Specialist
DX: D75.839 Thrombocytosis, unspecified (principal); Z79.899 Other long term (current) drug therapy

== ENCOUNTER → 2025-06-22 | Outpatient (CLI) | payer MEDICARE ==
[2025-06-22 14:08] LABS: BASO # 0.1 10^3/uL (0.0-0.2); BASO % 1.8 % (0.0-1.0); EOS # 0.3 10^3/uL (0.0-0.5); EOS % 4.0 % (0.0-3.0); LYMPH # 1.7 10^3/uL (1.5-5.0); LYMPH % 22.1 % (24.0-44.0); MONO # 0.6 10^3/uL (0.0-0.8); MONO % 7.9 % (2.0-8.0); NEUTROPHILS # 4.8 10^3/uL (1.5-8.5); NEUTROPHILS % 63.7 % (36.0-66.0); PLATELET COUNT, AUTOMATED 547 10^3/uL (150-450)
[2025-06-22 14:24] LABS: ALT/SGPT 27.0 U/L (7.0-40); AST/SGOT 26.0 U/L (<34); CALCIUM LEVEL 9.0 MG/DL (8.3-10.6); CARBON DIOXIDE LEVEL 29.0 MMOL/L (20-31); CHLORIDE LEVEL 103.0 MMOL/L (98-107); CREATININE FOR GFR 0.89 MG/DL (0.55-1.30); GLOMERULAR FILTRATION RATE 68.8 (>39); POTASSIUM SERUM 4.3 MMOL/L (3.5-5.1); SODIUM LEVEL 143.0 MMOL/L (136-145)
== END ==
LOC: M PLALAB 08:56
PROVIDERS: ATTEND Specialist
DX: D69.6 Thrombocytopenia, unspecified (principal)

== ENCOUNTER → 2025-07-13 | Outpatient (CLI) | payer MEDICARE ==
[~2025-07-13] MED LIST changes: +TIRZ2.5P3
== END ==
LOC: M WHC 07:30
PROVIDERS: ATTEND Internal Medicine
DX: Z12.31 Encounter for screening mammogram for malignant neoplasm of breast (principal); R92.323 Mammographic fibroglandular density, bilateral breasts

== ENCOUNTER → 2025-07-20 | Outpatient (CLI) | payer MEDICARE ==
[2025-07-20 11:26] LABS: BASO # 0.2 10^3/uL (0.0-0.2); BASO % 2.6 % (0.0-1.0); EOS # 0.4 10^3/uL (0.0-0.5); EOS % 5.4 % (0.0-3.0); LYMPH # 1.7 10^3/uL (1.5-5.0); LYMPH % 24.5 % (24.0-44.0); MONO # 0.5 10^3/uL (0.0-0.8); MONO % 6.7 % (2.0-8.0); NEUTROPHILS # 4.2 10^3/uL (1.5-8.5); NEUTROPHILS % 60.4 % (36.0-66.0); PLATELET COUNT, AUTOMATED 561 10^3/uL (150-450)
[2025-07-20 11:49] LABS: ALT/SGPT 24.0 U/L (7.0-40); AST/SGOT 27.0 U/L (<34); CALCIUM LEVEL 10.0 MG/DL (8.3-10.6); CARBON DIOXIDE LEVEL 29.0 MMOL/L (20-31); CHLORIDE LEVEL 103.0 MMOL/L (98-107); CREATININE FOR GFR 1.15 MG/DL (0.55-1.30); GLOMERULAR FILTRATION RATE 50.6 (>39); POTASSIUM SERUM 4.3 MMOL/L (3.5-5.1); SODIUM LEVEL 141.0 MMOL/L (136-145)
== END ==
LOC: M PLALAB 09:08
PROVIDERS: ATTEND Specialist
DX: D47.3 Essential (hemorrhagic) thrombocythemia (principal)

== ENCOUNTER → 2025-08-17 | Outpatient (CLI) | payer MEDICARE ==
[2025-08-17 14:43] LABS: BASO # 0.2 10^3/uL (0.0-0.2); BASO % 2.0 % (0.0-1.0); EOS # 0.3 10^3/uL (0.0-0.5); EOS % 3.8 % (0.0-3.0); LYMPH # 1.6 10^3/uL (1.5-5.0); LYMPH % 21.8 % (24.0-44.0); MONO # 0.5 10^3/uL (0.0-0.8); MONO % 6.4 % (2.0-8.0); NEUTROPHILS # 4.9 10^3/uL (1.5-8.5); NEUTROPHILS % 65.5 % (36.0-66.0); PLATELET COUNT, AUTOMATED 610 10^3/uL (150-450)
[2025-08-17 14:46] LABS: ALT/SGPT 22.0 U/L (7.0-40); AST/SGOT 25.0 U/L (<34); CALCIUM LEVEL 9.5 MG/DL (8.3-10.6); CARBON DIOXIDE LEVEL 29.0 MMOL/L (20-31); CHLORIDE LEVEL 103.0 MMOL/L (98-107); CREATININE FOR GFR 1.1 MG/DL (0.55-1.30); GLOMERULAR FILTRATION RATE 53.4 (>39); POTASSIUM SERUM 4.4 MMOL/L (3.5-5.1); SODIUM LEVEL 142.0 MMOL/L (136-145)
== END ==
LOC: M PLALAB 09:53
PROVIDERS: ATTEND Specialist
DX: D69.3 Immune thrombocytopenic purpura (principal)

== ENCOUNTER → 2025-09-21 | Outpatient (CLI) | payer MEDICARE ==
[2025-09-21 15:40] LABS: ALT/SGPT 21.0 U/L (7.0-40); AST/SGOT 24.0 U/L (<34); CALCIUM LEVEL 9.7 MG/DL (8.3-10.6); CARBON DIOXIDE LEVEL 30.0 MMOL/L (20-31); CHLORIDE LEVEL 105.0 MMOL/L (98-107); CREATININE FOR GFR 1.12 MG/DL (0.55-1.30); GLOMERULAR FILTRATION RATE 52.3 (>39); POTASSIUM SERUM 4.4 MMOL/L (3.5-5.1); SODIUM LEVEL 141.0 MMOL/L (136-145)
[2025-09-21 16:09] LABS: BASO # 0.2 10^3/uL (0.0-0.2); BASO % 2.5 % (0.0-1.0); EOS # 0.4 10^3/uL (0.0-0.5); EOS % 4.6 % (0.0-3.0); LYMPH # 1.8 10^3/uL (1.5-5.0); LYMPH % 22.3 % (24.0-44.0); MONO # 0.6 10^3/uL (0.0-0.8); MONO % 7.6 % (2.0-8.0); NEUTROPHILS # 5.0 10^3/uL (1.5-8.5); NEUTROPHILS % 62.6 % (36.0-66.0); PLATELET COUNT, AUTOMATED 664 10^3/uL (150-450)
== END ==
LOC: M PLALAB 09:14
PROVIDERS: ATTEND Specialist
DX: D69.3 Immune thrombocytopenic purpura (principal)

== ENCOUNTER → 2025-10-19 | Outpatient (CLI) | payer MEDICARE ==
[2025-10-19 13:55] LABS: BASO # 0.2 10^3/uL (0.0-0.2); BASO % 2.7 % (0.0-1.0); EOS # 0.3 10^3/uL (0.0-0.5); EOS % 4.3 % (0.0-3.0); LYMPH # 1.6 10^3/uL (1.5-5.0); LYMPH % 20.7 % (24.0-44.0); MONO # 0.5 10^3/uL (0.0-0.8); MONO % 6.8 % (2.0-8.0); NEUTROPHILS # 5.0 10^3/uL (1.5-8.5); NEUTROPHILS % 65.1 % (36.0-66.0); PLATELET COUNT, AUTOMATED 660 10^3/uL (150-450)
[2025-10-19 14:11] LABS: ALT/SGPT 20.0 U/L (7.0-40); AST/SGOT 22.0 U/L (<34); CALCIUM LEVEL 9.8 MG/DL (8.3-10.6); CARBON DIOXIDE LEVEL 29.0 MMOL/L (20-31); CHLORIDE LEVEL 102.0 MMOL/L (98-107); CREATININE FOR GFR 1.2 MG/DL (0.55-1.30); GLOMERULAR FILTRATION RATE 48.1 (>39); POTASSIUM SERUM 4.4 MMOL/L (3.5-5.1); SODIUM LEVEL 140.0 MMOL/L (136-145)
== END ==
LOC: M PLALAB 09:18
PROVIDERS: ATTEND Specialist
DX: D47.3 Essential (hemorrhagic) thrombocythemia (principal)